=== PATIENT | male | born 1955 | race African-American/Black ===

== ENCOUNTER 2016-09-29 13:12 | Inpatient (IN) | payer MEDICARE, MEDICAID ==
[~2016-09-29] VITALS: Ht 170.2 cm; Wt 97.1 kg
--- NOTE | ~2016-09-29 | HEMODYNAMI ---
PATIENT:TRAVIS VILLALBA MEDICAL RECORD: [id number] : 55 [id number] ADMISSION DATE: 09/29/16 Generatedon:10/07/201613:06 Patient name: TRAVIS VILLALBA Patient #: [id number] SSN: [id number] : 1955 Date of study: 10/07/2016 Page: Of Hemodynamic Procedure Report Patient Data Patient Demographics Procedure consent was obtained First Name: TRAVIS Gender: Male Last Name: DEEJAY : 1955 Middle Initial: TRUDY Age: 61 year(s) Patient #: [id number] Race: Black SSN: [id number] Additional ID: [id number] Contact details [address]: [address] [place] [address] [address] State: [place] City: [place] Zip code: [address] Past Medical History History of disease Date Diagnosis Comments CAD PVD Hypertension Diabetes Allergies: No known allergies Admission Admission Data Admission Date: 09/29/2016 Admission Time: 16:41 Admit Source: Other Insurance Payor: Medicare, Room #: D.2110 Medicaid Height (in.): 67 BSA: 2.13 (m2) Height (cm.): 170.18 BMI: 35.4 (kg/m2) Weight (lbs.): 226 Weight (kg.): 102.51 Lab Results Lab Result Date: 10/06/2016 Lab Result Time: 8:50 Biochemistry Name Units Result Min Max BUN mg/dl 69 --(----)-* 7 18 Creatinine mg/dl 2.7 --(----)-* 0.6 1.3 CBC Name Units Result Min Max Hematocrit % 44.9 --(*---)-- 42 54 Hemoglobin g/dl 14.6 --(-*--)-- 13.5 17.5 Procedure Procedure Types Cath Procedure Peripheral vascular Intervention Stent Procedure Description Procedure Date Procedure Date: 10/07/2016 Procedure Start Time: 12:49 Procedure End Time: 13:04 Procedure Staff Name Function Dominick Dowling MD Performing Physician Grady Thompson RT Scrub Yanique Pace RN Nurse Red Martin RN Quality Assurance Pan Gaffney RT Monitor Gustavo Knight RT Monitor Procedure Data Cath Procedure Fluoroscopy Diagnostic fluoroscopy Total fluoroscopy Time: 2.3 time: 2.3 min min Diagnostic fluoroscopy Total fluoroscopy dose: 116 dose: 116 mGy mGy Contrast Material Contrast Material Type Amount (ml) Isovue 300 0 Entry Location Entry Primary Successful Side Size Upsize Upsize Entry Closure Vizcarra ccessful Closure Location (Fr) 1 (Fr) 2 (Fr) Remarks Device Remarks Femoral Left 5 Fr un Mechanical artery Compression Estimated blood loss: 5 ml Procedure Complications No complications Procedure Medications Medication Administration Route Dosage Oxygen NC 2 l/min Heparin Flush Bag added to field 2 bags (1000units/500ml NS) Lidocaine 2% added to field 20 Versed I.V. 1 mg Fentanyl I.V. 50 mcg Versed I.V. 1 mg Fentanyl I.V. 50 mcg Versed I.V. 1 mg Fentanyl I.V. 50 mcg Versed I.V. 1 mg Fentanyl I.V. 50 mcg Versed I.V. 0.5 mg Fentanyl I.V. 25 mcg Hemodynamics Rest BSA: 2.13 (m2) HGB: 14.6 (g/dl) O2 Consumption: Estimated: 271.66 (ml/min) O2 Co nsumption indexed: Estimated:127.54 (ml/min/m) Heart Rate: 97 (bpm) Snapshots Pre Cath Intra NCS Post Cath Vital Signs Time Heart Resp SPO2 NIBP (mmHg) Rhythm Pain Sedation Rate (ipm) (%) Status Level (bpm) 12:06:57 86 24 99 119/84(99) NSR 0 (11) 10(A) , No pain 12:11:05 86 22 98 119/85(101) NSR 0 (11) 10(A) , No pain 12:15:14 83 19 98 115/83(95) NSR 0 (11) 10(A) , No pain 12:19:22 82 14 98 119/79(94) NSR 0 (11) 10(A) , No pain 12:23:30 80 15 97 114/83(97) NSR 0 (11) 10(A) , No pain 12:27:38 80 14 98 110/76(91) NSR 0 (11) 10(A) , No pain 12:31:42 79 14 95 112/81(93) NSR 0 (11) 10(A) , No pain 12:35:48 79 13 98 111/76(93) NSR 0 (11) 10(A) , No pain 12:39:53 78 14 98 111/79(93) NSR 0 (11) 10(A) , No pain 12:44:01 78 13 95 108/75(87) NSR 0 (11) 10(A) , No pain 12:48:09 78 16 96 109/70(89) NSR 0 (11) 10(A) , No pain 12:52:44 85 15 96 139/117(129) NSR 0 (11) 9(A) , No pain 12:56:58 85 25 97 122/92(111) NSR 0 (11) 9(A) , No pain 13:01:05 84 16 96 134/112(126) NSR 0 (11) 9(A) , No pain Medications Time Medication Route Dose Verified Delivered Reason Notes Effec tiveness by by 12:07:28 Oxygen NC 2 Dominick Yanique Per l/min Josey Pace RN physician 12:07:35 Heparin Flush added 2 Dominick Dominick used for Bag to bags Josey Dowling MD procedure (1000units/500ml field NS) 12:07:41 Lidocaine 2% added 20ml Dominick Dominick used for to vial Josey Dowling MD procedure field 12:41:18 Versed I.V. 1 mg Dominick Yanique for Josey Pace RN sedation 12:41:25 Fentanyl I.V. 50 Dominick Yanique for mcg Josey Pace RN sedation 12:44:16 Versed I.V. 1 mg Dominick Yanique for Josey Pace RN sedation 12:44:23 Fentanyl I.V. 50 Dominick Yanique for mcg Josey Pace RN sedation 12:46:24 Versed I.V. 1 mg Dominick Yanique for Josey Pace RN sedation 12:46:28 Fentanyl I.V. 50 Dominick Yanique for mcg Josey Pace RN sedation 12:48:23 Versed I.V. 1 mg Dominick Yanique for Josey Pace RN sedation 12:48:26 Fentanyl I.V. 50 Dominick Yanique for mcg Josey Pace RN sedation 12:50:49 Versed I.V. 0.5 Dominick Yanique for mg Josey Pace RN sedation 12:50:57 Fentanyl I.V. 25 Dominick Yanique for mcg Josey Pace RN sedation Procedure Log Time Note 11:30:00 Red Martin RN sent for patient. Start room use. 11:40:51 ACC Patient presents with No angina; no symptoms CCS Anginal Class 2--Slight limitation of ordinary activity. 11:40:58 Diagnostic Cath status Elective 11:41:10 Time tracking: Regular hours 11:41:14 Plan of Care:Hemodynamics will remain stable., Cardiac rhythm will remain stable., Comfort level will be maintained., Respiratory function will remain adequate., Patient/ family verbilizes understanding of procedure., Procedure tolerated without complication., Recovers from procedure without complications.. 11:45:51 Admit Source: Other 11:45:53 Insurance Payor : Medicare, Medicaid 11:46:48 Lab Result : Hemoglobin 14.6 g/dl 11:46:48 Lab Result : Hematocrit 44.9 % 11:46:48 Lab Result : BUN 69 mg/dl 11:46:48 Lab Result : Creatinine 2.7 mg/dl 11:47:04 Informed consent obtained and on chart 11:55:35 Patient received from Med II to CCL 1 Alert and oriented. Tansferred to table in Supine position. 11:55:36 Warm blankets applied, and bailey hugger turned on for patient comfort. 11:55:37 Correct patient and procedure confirmed by team. 11:55:56 ECG and BP/O2 sat monitors applied to patient. 11:56:09 H&P Date Dictated: 09/29/2016 Within 30 days and on chart.. 11:56:10 Pre-procedure instructions explained to patient. 11:56:11 Pre-op teaching completed and patient verbalized understanding. 11:56:13 Family unavailable. 11:56:15 Patient NPO since Midnight. 11:57:56 Is the patient allergic to Iodine/contrast media? No. 11:58:00 Is patient on blood thinner?Yes 11:58:03 ACC The patient was administered the following blood thiners within the last 24 hours: ACCPlavix 12:00:37 Patient diabetic? Yes. 12:04:03 If diabetic: On Metformin? No 12:04:07 Previous problem with sedation/anesthesia? No ? 12:04:10 Snore? Yes 12:04:11 Sleep apnea? Yes 12:04:12 Deviated septum? No 12:04:13 Opens mouth fully? Yes 12:04:14 Sticks out tongue? Yes 12:04:22 Airway obstruction? Yes COPD 12:04:28 Dentures? No ? 12:04:32 Pre procedure: left dorsailis pedis pulse 1+ Palpable, but thready & weak; easily obliterated 12:05:00 Patient pain scale 0/10 ?. 12:05:12 IV patent on arrival in port with 0.9% NaCl at [facility]. 12:05:16 Lab results completed and on chart. 12:05:27 Left groin area was prepped with chlora-prep and draped in sterile fashion 12:05:28 Alarms reviewed by R. N. 12:05:29 Sharps counted by scrub and verified by R.N. 12:05:34 Use device set Femoral PCI 12:05:36 Tegaderm 4 x 4 opened to sterile field. 12:05:40 Acist Manifold opened to sterile field. 12:05:41 Acist Syringe opened to sterile field. 12:05:42 Acist Hand Control opened to sterile field. 12:05:42 Bag Decanter opened to sterile field. 12:05:48 Cardinal Cath Pack opened to sterile field. 12:05:48 Terumo 6Fr [place] Sheath opened to sterile field. 12:05:56 Vital chart was started 12:06:59 Patient Height : 170.18 cm 12:07:01 Patient Weight : 102.51 kg 12:07:28 Oxygen 2 l/min NC was given by Yanique Pace RN; Per physician; 12:07:35 Heparin Flush Bag (1000units/500ml NS) 2 bags added to field was given by Dominick Dowling MD; used for procedure; 12:07:41 Lidocaine 2% 20ml vial added to field was given by Dominick Dowling MD; used for procedure; 12:08:25 Baseline sample Acquired. 12:09:02 Rhythm: sinus rhythm 12:09:05 Full Disclosure recording started 12::06 --------ALL STOP TIME OUT------ 12::07 Final Timeout: patient, procedure, and site verified with staff and physician. All members of the team are in agreement. 12:41:09 Left groin site verified by team. 12:41:12 Physical assessment completed. ASA score P 2 - A patient with mild systemic disease as per Dominick Dowling MD. 12:41:14 Sedation plan: IV Moderate Sedation Versed, Fentanyl 12:41:18 Versed 1 mg I.V. was given by Yanique Pace RN; for sedation; 12:41:25 Fentanyl 50 mcg I.V. was given by Yanique Pace RN; for sedation; 12:44:16 Versed 1 mg I.V. was given by Yanique Pace RN; for sedation; 12:44:23 Fentanyl 50 mcg I.V. was given by Yanique Pace RN; for sedation; 12:46:24 Versed 1 mg I.V. was given by Yanique Pace RN; for sedation; 12:46:28 Fentanyl 50 mcg I.V. was given by Yaniquefrank Pace RN; for sedation; 12:48:23 Versed 1 mg I.V. was given by Yanique Pace RN; for sedation; 12:48:26 Fentanyl 50 mcg I.V. was given by Yanique Pace RN; for sedation; 12:49:31 Procedure started. 12:49:37 Local anesthetic to left femerol artery with Lidocaine 2% by Dominick Dowling MD.INITIAL ACCESS ONLY 12:50:17 Zero performed for pressure channel P1 12:50:24 Zero performed for pressure channel P1 12:50:35 Zero performed for pressure channel P1 12:50:44 Zero performed for pressure channel P1 12:50:49 Versed 0.5 mg I.V. was given by Yanique Pace RN; for sedation; 12:50:57 Fentanyl 25 mcg I.V. was given by Yanique Pace RN; for sedation; 12:54:23 Terumo 5Fr [place] Sheath opened to sterile field. 12:55:55 A 5 Fr sheath was inserted into the Left Femoral arteryun 12:56:27 Due to respiratory status we were unabel to gain access. 12:57:54 St Aric Femstop Arch Gold opened to sterile field. 12:59:57 Sheath removed intact; hemostasis achieved with Mechanical Compression to the Left Femoral artery. 13:00:00 Procedure ended.(Physican Out) 13:00:18 Fluoroscopy time 02.30 minutes. 13:00:24 Flurop Dose total: 116 13:00:24 Fluoroscopy dose: 116 mGy 13:00:31 Contrast amount:Isovue 300 0ml. 13:00:33 Sharps counted by scrub and verified by R.N. 13:00:37 Insertion/operative site no bleeding no hematoma. 13:00:48 Post-op/insertion site Left Femoral artery dressed using a 4 x 4 and Tegaderm. 13:00:57 Post left femerol artery:stable, soft, clean and dry 13:01:42 Femstop placed over the left femerol artery at 175 mmHg. Hemostasis achieved. 13:01:43 Post Procedure Pulses reassessed and unchanged 13:01:58 Post-procedure physical assessment completed. ASA score P 2 - A patient with mild systemic disease as per Dominick Dowling MD. 13:02:01 Post procedure rhythm: unchanged. 13:02:06 Estimated blood loss: 5 ml 13:02:07 Post procedure instruction explained to patient.Patient verbalizes understanding. 13:02:08 Patient needs reinforcement of post procedure teaching. 13:03:29 Procedure type changed to Cath procedure, Peripheral vascular Intervention, Stent 13:04:00 Procedure and supply charges have been captured, reviewed, submitted and are correct. 13:04:06 Procedure Complication : No complications 13:04:13 Vital chart was stopped 13:04:14 See physician's report for complete and final results. 13:04:16 Report given to PCU. 13:04:19 Patient transfered to PCU with Stretcher. 13:04:31 Procedure ended. 13:04:31 Full Disclosure recording stopped 13:04:43 ACC-PCI Only Patient was given prescriptions, or instructed by Dominick Dowling MD to start/continue the following medications upon discharge: Plavix 13:04:44 End room use (Document Last) Device Usage Item Manufacture Quantity Catalog Hospital Part Current Minimal Lot # / Name Number Charge Number Stock Stock Ser ial# Code Tegaderm 1 [id number] 5 4 x 4 Acist Acist 1 92943 353676 [id number] [id number] 5 Manifold Medical Systems Inc Acist Acist 1 16755 810282 050396 [id number] 20 Syringe Medical Systems Inc Acist Acist 1 76876 707666 577942 549546 5 Hand Medical Control Systems Inc Bag Microtek 1 2002S 072211 53350 007819 5 Decanter Medical Inc. Cardinal Cardinal 1 [id number] 916606 78940 070808 5 Cath Health Pack Terumo Terumo 1 [id number] [id number] 701028 661253 40 6Fr [place] Sheath Terumo Terumo 1 [id number] 939497 456967 529685 [address] [place] [address] A[address] St Aric 1 [id number] 864808 144855 169226 5 Femstop Arch Gold Signature [employer]it [place] [facility] Stage Time Signature Unsigned Intra-Procedure 10/07/2016 Gustavo Knight 1:05:58 PM RT(R) Signatures Monitor : Pan Gaffney RT Signature : Date : Time : Monitor : Gustavo Knight RT Signature : Date : Time : [facility] [address] [facility] [place] [address]
[~2016-09-29 13:12] MED LIST: ADVAIR 250/501 DISK INH; ADVAIR HFA [SP]12 GM INH; ALBUTEROL2.5 MG/3 M INH; AUGMENTIN 875-11 TAB PO; BAYER CHEWABLE81 MG PO; BETAPACE 120 M120 MG PO; CARDIZEM CD120 MG PO; CARDURA4 MG; CARDURA4 MG PO; CATAPRES-T1 PATCH.WK TD; CATAPRES-T1 PATCH.WK TRANSDERM; CORDARONE200 MG PO; COREG12.5 MG PO; COREG6.25 MG PO; COUMADIN2.5 MG PO; COUMADIN5 MG PO; COUMADIN7.5 MG PO; DOXYCYCLINE HY100 M2 PO; ELAVIL75 MG PO; FLOMAX0.4 MG PO; FUROSEMIDE20 MG PO; GLUCOPHAGE500 MG PO; GLUCOTROL 5 MG T5 MG PO; GLUCOTROL XL 5 M5 MG PO; HYDRALAZINE HCL25 MG PO; HYDROCODONE-APA1 TAB PO; IMDUR60 MG PO; ISORDIL40 MG PO; ISOSORBIDE MONO60 M1 PO; JANUVIA50 MG PO; K-DUR20 MEQ PO; LANOXIN125 MCG PO; LANTUS SOL100 UNIT/1 SC; LASIX20 MG PO; LASIX40 MG PO; LIPITOR10 MG PO; LISINOPRIL10 MG PO; LOVENOX INJ100 MG/ML SC; LOVENOX INJ100 MG/ML SQ; MEDROL DOSE PACK4 MG PO; MEDROL2 MG PO; METOPROLOL TAR100 M1 PO; MOBIC7.5 MG PO; NEURONTIN 300300 MG PO; NITRO-DUR0.2 MG TRANSDERM; NITROQUICK0.4 MG SL; NITROSTAT0.4 MG SL; NORCO 10/325 TA1 TA1 PO; NORVASC10 MG PO; NORVASC5 MG PO; PLAVIX75 MG PO; PROVENTIL/2.5 MG/3 M INH; SORINE80 MG; SORINE80 MG PO; STERAPRED 5MG 125 MG PO; SYMBICORT 16010.2 GM INH; TOPROL XL100 MG PO; ZAROXOLYN2.5 MG PO; ZOCOR20 MG PO; ZPAK PO
[2016-09-29 13:51] LABS: BASOPHILS 0.1 % (0.0-2.0); HEMATOCRIT 39.5 % (42.0-54.0); HEMOGLOBIN 12.5 g/dL (13.5-17.5); IMMATURE GRANULOCYTES 0.1 % (0-5); LYMPHOCYTES 9.2 % (15-50); MCH 26.1 pg (26.0-34.0); MCHC 31.6 g/dL (31.0-37.0); MCV 82.5 fL (80.0-100.0); MEAN PLATELET VOLUME 10.8 fL (7.4-10.4); MONOCYTES 11.5 % (2-11); NEUTROPHILS 77.1 % (40-80); PLATELET COUNT 206 10x3/uL (130-400); RBC 4.79 10x6/uL (4.20-6.10); RDW 18.1 % (11.5-14.5); WBC 7.1 10x3/uL (4.8-10.8)
[2016-09-29 14:05] LABS: ALBUMIN 3.2 g/dL (3.4-5.0); ANION GAP 11.3 mmol/L (8-16); BILIRUBIN - TOTAL 0.33 mg/dL (0.2-1.3); CALCIUM 8.6 mg/dL (8.5-10.1); CARBON DIOXIDE 27.7 mmol/L (21.0-32.0); PROTEIN - SERUM 6.7 g/dL (6.4-8.2)
[2016-09-29 14:14] LABS: TROPONIN-I 0.052 ng/mL (0.000-0.060)
[2016-09-29 19:00] VITALS: BP 132/84
[2016-09-29 19:02] VITALS: BP 145/95; BMI 39.2
--- NOTE | 2016-09-29 21:18 | NUR ---
SITTING ON SIDE OF BED. nO COMPALINTS VOICED. lEFT CHEST PORT SL. FLUSHED PER ORDERS. CL IN REACH.
[2016-09-30] VITALS (23 sets, daily range): BP systolic 102–196; BP diastolic 59–114; Ht 170.2 cm; Wt 97.1 kg
--- NOTE | 2016-09-30 02:22 | NUR ---
EYES CLOSED RESP EVEN. SEMI FOWLERS POSITION. 02 @ 3L PER NC ON. NO DISTRESS NOTED. CL IN REACH.
--- NOTE | 2016-09-30 06:30 | NUR ---
PATIENT IN BED WATCHING TV. AAOX4. RR EVEN AND UNLABORED. O2 @ 2L VIA NC. TELEMETRY ON. STATES PAIN IS A 10. NORCO GIVEN PER ORDER. WILL REASSESS.
--- NOTE | 2016-09-30 07:15 | NUR ---
PATIENT RECEIVED ALERT IN BED. C/O PAIN TO ABDOMEN 10/10 AND NAUSEA. LABS DRAW FROM PORT. SIDE RAILS UP X2. BED IN LOW POSITION. CALL LIGHT IN REACH.
--- NOTE | 2016-09-30 07:43 | NUR ---
CRITICAL GLUCOSE OF 751 RECEIVED.
--- NOTE | 2016-09-30 07:54 | NUR ---
28 UNITS HUMALOG GIVEN PER SLIDING SCALE. WILL NOTIFY PHYSICIAN
--- NOTE | 2016-09-30 08:20 | NUR ---
SCHEDULED MEDICATION ADMINISTERED. WELL TOLERATED. SIDE RAILS UP X2. BED IN LOW POSITION. CALL LIGHT IN REACH.
[2016-09-30 08:21] LABS: INR 1.69 (0.85-1.17); PROTIME 19.9 SECONDS (11.6-15.0)
[2016-09-30 08:59] LABS: ALBUMIN 3.5 g/dL (3.4-5.0); BILIRUBIN - TOTAL 0.4 mg/dL (0.2-1.3); CALCIUM 8.5 mg/dL (8.5-10.1); CARBON DIOXIDE 23.8 mmol/L (21.0-32.0); CREATININE - SERUM 2.8 mg/dL (0.6-1.3); PROTEIN - SERUM 7.5 g/dL (6.4-8.2)
[2016-09-30 09:00] LABS: ANION GAP 19.1 mmol/L (8-16); POTASSIUM - SERUM 5.9 mmol/L (3.5-5.1)
--- NOTE | 2016-09-30 09:20 | NUR ---
CONNOR VERGARA SPOKE WITH DR VILLANUEVA REGARDING PATIENT CONDITION. NEW ORDERS RECEIVED.
[2016-09-30 10:06] LABS: BASOPHILS 0.2 % (0.0-2.0); EOSINOPHILS 0 % (0-7); HEMATOCRIT 44.8 % (42.0-54.0); HEMOGLOBIN 13.7 g/dL (13.5-17.5); IMMATURE GRANULOCYTES 0.5 % (0-5); LYMPHOCYTES 11.3 % (15-50); MCH 25.5 pg (26.0-34.0); MCHC 30.6 g/dL (31.0-37.0); MCV 83.3 fL (80.0-100.0); MONOCYTES 3.9 % (2-11); NEUTROPHILS 84.1 % (40-80); RBC 5.38 10x6/uL (4.20-6.10); RDW 18.3 % (11.5-14.5); WBC 6.6 10x3/uL (4.8-10.8)
[2016-09-30 10:07] LABS: PLATELET COUNT 275 10x3/uL (130-400)
[2016-09-30 10:46] LABS: UDS - AMPHET NEGATIVE QUAL (NEGATIVE); UDS - BARB NEGATIVE QUAL (NEGATIVE); UDS - BENZO NEGATIVE QUAL (NEGATIVE); UDS - COCAINE NEGATIVE QUAL (NEGATIVE); UDS - METH NEGATIVE QUAL (NEGATIVE); UDS - OPIATE POSITIVE QUAL (NEGATIVE); UDS - PCP NEGATIVE QUAL (NEGATIVE); UDS - THC NEGATIVE QUAL (NEGATIVE)
--- NOTE | 2016-09-30 10:50 | NUR ---
GLUCOSE 658. 30 UNITS REGULAR INSULIN GIVEN PER ORDERS.
--- NOTE | 2016-09-30 11:05 | NUR ---
PT ARRIVED BY WHEELCHAIR TO ROOM 2301. PT PLACED ON ICU MONITORS. ORIENTED TO ROOM. CALL LIGHT WITHIN REACH.
--- NOTE | 2016-09-30 11:05 | NUR ---
PATIENT TRANSFERRED TO ICU VIA WHEELCHAIR
--- NOTE | 2016-09-30 11:39 | NUR ---
Is the patient Alert and Oriented? Yes 0 * How many steps to enter\exit or inside your home? 5 0 * PCP DR. VILLANUEVA 0 * Pharmacy [facility] 0 * Preadmission Environment Home with Family 0 * ADLs Independent 0 * Equipment CPAP Nebulizer Oxygen Rolling Walker 0 * Other Equipment PATIENT HAS O2 AND EQUIPMENT FROM [facility] 0 * List name and contact numbers for known caregivers / representatives who currently or will assist patient after discharge: NIRANJAN MELGAR [phone] 0 * Additional services required to return to the preadmission environment? Yes 0 * Can the patient safely return to the preadmission environment? Yes 0 * Has this patient been hospitalized within the prior 30 days at any hospital? Yes 0 PATIENT STATES HE LIVES AT HOME WITH HIS FIANCERAMÓN. HE STATES SHE ASSIST HIM SOME BUT SHE HAS SEIZURES AND HAS MEMORY PROBLEMS. PATIENT STATES HE WAS INDEPENDENT WITH ALL ADL'S PRIOR TO COMING TO THE HOSPITAL. HIS PCP IS DR. VILLANUEVA. HE GETS HIS MEDS FROM [facility]. HE STATES HE HAS NOT HAD HOME HEALTH. HE HAS O2, NEBULIZER, AND CPAP FROM [facility]. PATIENT STATES HE WILL CALL ONE OF HIS CHILDREN TO DRIVE HIM HOME AT DISCHARGE. THERE ARE 5 STEPS TO ENTER HIS HOME. PATIENT DOES REQUEST AT DISCHARGE POSSIBLY ASSISTANCE FROM [facility] ON AGING FOR PHYSICIAN'S ASSISTANT TO ASSIT HIM IF POSSIBLE WITH BATHING AND SOME HOUSEKEEPING. HE STATES HE HAD THAT ASSISTANCE SEVERAL YEARS AGO. CM TO FOLLOW.
--- NOTE | 2016-09-30 13:12 | HP ---
PATIENT: TRAVIS VILLALBA MEDICAL RECORD: [id number] ACCOUNT: [id number] LOCATION:[facility] [id number] : 55 ADMISSION DATE: 09/29/16 HISTORY AND PHYSICAL EXAMINATION DATE OF ADMISSION: 09/29/2016 CHIEF COMPLAINT: Productive cough, congestion that has gotten worse over the last couple of weeks, has tightness in his chest, but he has no chest pain. HISTORY OF PRESENT ILLNESS: This is a 61-year-old -[place] Islander who presented to the ER complaining of worsening respiratory status. He has been in the hospital a couple times recently more for breathing status and for his heart, which he has been most frequently admitted for. In the Emergency Room, he was afebrile, pulse was 83, respirations were 20. He had pain diffusely in the lungs and rates it as 9 in a 1-10 scale. He had diffuse wheezing. EMS was called and they gave him updraft Xopenex, but that really did not seem to help much at all. He is admitted for COPD exacerbation. PAST MEDICAL AND SURGICAL HISTORY: He was just in the hospital a couple of weeks ago. He has had multiple admissions for chest pain or congestive heart failure and sometimes COPD. PAST MEDICAL AND SURGICAL HISTORY: He has history of coronary artery disease with bypass graft as well as aortic valve replacement by Dr. Mac. He has had multiple stents by [facility]. He has uncontrolled type 2 diabetes on insulin, chronic kidney disease with a baseline around 2.0. He has chronic shoulder and hip pain. He has had bilateral shoulder replacements by Dr. Huggins. ALLERGIES: No known drug allergies. HOME MEDICATIONS: He has been on Augmentin twice a day after last discharge; he is on Proventil updrafts every 6 hours as needed, Flomax 0.4 mg once a day, Plavix 75 mg once a day, warfarin 5 mg once a day, amiodarone 200 mg twice a day, amlodipine 10 mg once a day, carvedilol 12.5, he has been on 25 mg mg twice a day, doxazosin 4 mg twice a day, isosorbide mononitrate 60 mg twice a day, nitroglycerin 0.4 mg tablets sublingual every 5 minutes times 3 p.r.n. chest pain, nitroglycerin patch placed daily, clonidine patch once a week 0.3 mg per 24 hours, amitriptyline 75 mg at bedtime, aspirin 81 mg once a day, gabapentin 300 mg twice a day, Papillion 10/325 q.4 hours p.r.n. pain, Lasix 20 mg twice a day, Symbicort 2 puffs twice a day, Lantus insulin should be on 20 units daily, he finished Medrol Dosepak and he is on Januvia 50 mg once a day. Home medicines are listed on his DEC. SOCIAL HISTORY: Lives with significant other. He is on disability for multiple medical problems. HABITS: He drinks occasionally. He has used cocaine in the past, more often smoking marijuana. He states he stopped smoking cigarettes just before . FAMILY HISTORY: Mother with history of heart disease. He does not know his father's family history. HISTORY AND PHYSICAL [id number] TRAVIS VILLALBA REVIEW OF SYSTEMS: GENERAL: No major weight changes. HEENT: No particular sinus or allergy problems. RESPIRATORY: Has COPD, has home oxygen and on inhalers. CARDIAC: See above history, followed by Dr. Dowling. GASTROINTESTINAL: No significant problems there. GENITOURINARY: No significant problems there. MUSCULOSKELETAL: He has chronic pain especially in his shoulders, hips and knees. NEUROLOGIC: No seizures or headaches. PSYCHIATRIC: No depression or melancholia. PHYSICAL EXAMINATION: VITAL SIGNS: He is afebrile, pulse 90, respirations 22, blood pressure 145/95, O2 sat 96%. GENERAL: He appears in mild respiratory distress, struggling a little. HEENT: Grossly within normal limits. NECK: Supple. No JVD or bruit. HEART: Regular rate and rhythm. LUNGS: Mild diffuse wheezes. ABDOMEN: Soft. EXTREMITIES: No edema. Has chronic pain in shoulders. LABORATORY DATA: Arterial blood gas, pH 7.4, pCO2 of 38 and pO2 of 82. CBC with a white count of 16,100, white count is 7100, hemoglobin is 16.1, hematocrit 47 and platelet count 206,000 with 77% neutrophils. Sodium 133, potassium 5.0, chloride 99, CO2 of 27.7, BUN 37, creatinine 2.0, glucose 301 and calcium 8.6. LFTs are all okay. Troponin is okay at 0.052, proBNP 2989, which is bad for him. DIAGNOSTIC DATA: Chest x-ray was done and compared to previous chest x-ray on 09/26/2016, some increased pulmonary vascular congestion with findings consistent with slightly increased pulmonary edema in comparison to previous study. ASSESSMENT: 1. Chronic obstructive pulmonary disease exacerbation. 2. Mild congestive heart failure. 3. Uncontrolled diabetes. PLAN: Respiratory meds and diurese a little. Consult pulmonary. Other tests or procedures as warranted. TRANSINT:[id number] Voice Confirmation ID: [id number] DOCUMENT ID: [id number] HISTORY AND PHYSICAL [id number] TRAVIS VILLALBA WILLIAM MD at 1312 CC: [id number] DICTATION DATE: 09/29/162227 CONTINUOUS MINING OPERATOR: 09/29/16 2320 ADM IN [facility] [address] [place] [address]
--- NOTE | 2016-09-30 14:01 | NUR ---
PT'S BS IS CONTINUING TO DROP. DID EAT SOME OF HIS LUNCH TRAY. WILL CONTINUE TO CLOSELY MONITOR AND TREAT PER ORDERS ONCE IT STOPS TRENDING DOWN.
--- NOTE | 2016-09-30 16:30 | NUR ---
PT SITTING UP AND SET UP WITH SUPPER TRAY. NO OTHER NEEDS AT THIS TIME. VSS AT THIS TIME.
--- NOTE | 2016-09-30 19:35 | NUR ---
REC'D TO CARE, INSPECTOR COATED FABR[employer] PER FLOWSHEET. PT AWAKENS EASILY, VSS. PT DENIES SOB OR PAIN. IV DOBUTAMINE INFUSING TO L INFUSAPORT, DSG C/D/I. PT DENIES NEEDS. C/L IN REACH. ALARMS ON.
--- NOTE | 2016-09-30 20:51 | NUR ---
ADMIN PO MEDS PER MD ORDERS. PT REFUSED ELAVIL. SBP 102, B/P MEDS HELD AT THIS TIME. WILL CONT CLOSE MONITORING.
--- NOTE | 2016-09-30 21:07 | NUR ---
SBP 134 - ADMIN REST OF HOME MEDS. PT DENIES NEEDS. AWARE THAT WE NEED URINE SAMPLE - SPECIMEN CUP AT BS.
--- NOTE | 2016-09-30 22:45 | NUR ---
REASSESSMENT PER FLOWSHEET, NO ACUTE CHANGES. PT AWAKENS EASILY, DENIES NEEDS. VSS.
[2016-10-01] VITALS (30 sets, daily range): BP systolic 119–162; BP diastolic 77–109
--- NOTE | 2016-10-01 01:00 | NUR ---
RESTING WITH EYES CLOSED, VSS. C/L IN REACH.
--- NOTE | 2016-10-01 02:50 | NUR ---
REASSESSMENT PER FLOWSHEET, NO ACUTE CHANGES. AWAKENS EASILY, DENIES NEEDS. VSS.
--- NOTE | 2016-10-01 03:20 | NUR ---
PT VOIDED 750ML CLEAN - CATCH - SPECIMEN TO LAB. AM LAB DRAWN.
[2016-10-01 03:42] LABS: APPEARANCE CLEAR (CLEAR); COLOR YELLOW (YELLOW); LEUKOCYTE ESTERASE NEGATIVE (NEGATIVE); NITRITE NEGATIVE (NEGATIVE); PROTEIN NEGATIVE (NEGATIVE)
[2016-10-01 03:43] LABS: BILIRUBIN NEGATIVE (NEGATIVE); GLUCOSE 500 mg/dL (NEGATIVE); KETONE NEGATIVE (NEGATIVE); UROBILINOGEN NORMAL (NORMAL)
[2016-10-01 03:44] LABS: CREATININE - URINE 100.1 mg/dL (30-125); PROTEIN - URINE 36.3 mg/dL (0.0-11.9)
[2016-10-01 03:46] LABS: BASOPHILS 0.1 % (0.0-2.0); EOSINOPHILS 0 % (0-7); HEMATOCRIT 41.9 % (42.0-54.0); HEMOGLOBIN 13.5 g/dL (13.5-17.5); IMMATURE GRANULOCYTES 0.3 % (0-5); LYMPHOCYTES 7.4 % (15-50); MCH 26.3 pg (26.0-34.0); MCHC 32.2 g/dL (31.0-37.0); MCV 81.5 fL (80.0-100.0); MEAN PLATELET VOLUME 10.9 fL (7.4-10.4); MONOCYTES 6.2 % (2-11); PLATELET COUNT 256 10x3/uL (130-400); RBC 5.14 10x6/uL (4.20-6.10); RDW 17.7 % (11.5-14.5); WBC 11.9 10x3/uL (4.8-10.8)
[2016-10-01 03:53] LABS: CALCIUM 9.2 mg/dL (8.5-10.1); CREATININE - SERUM 2.5 mg/dL (0.6-1.3); MAGNESIUM - SERUM 2.3 mg/dL (1.8-2.4); PHOSPHOROUS 5.1 mg/dL (2.5-4.9)
[2016-10-01 04:05] LABS: ANION GAP 13.2 mmol/L (8-16); CARBON DIOXIDE 29.8 mmol/L (21.0-32.0)
--- NOTE | 2016-10-01 04:30 | NUR ---
AM LABS REVIEWED. GLU 182 - COVERAGE PER SSI. PT RESTING QUIETLY - DENIES NEEDS.
--- NOTE | 2016-10-01 07:00 | NUR ---
REC'D REPORT AND RESUMED CARE, AAO, VSS, O2 VIA NC AT 2L, SAT 99%, INFUSA PORT LEFT SUBCLAVIAN WITH DOBUTAMINE AT 5 MCG/KG/MIN, URINAL IN USE, SELF REPOSITIONS, ASSESSMENT COMPLETE PER FLOWSHEET, DENIES PAIN, CALL LIGHT IN REACH, VOICES NO NEEDS AT THIS TIME
--- NOTE | 2016-10-01 08:00 | NUR ---
FSBS 238, 8 UNITS HUMALOG PER INTERMEDIATE S/S
--- NOTE | 2016-10-01 09:00 | NUR ---
AM MEDS GIVEN WITHOUT DIFFICULTY
--- NOTE | 2016-10-01 09:25 | CN ---
PATIENT NAME:TRAVIS VILLALBA MEDICAL RECORD: [id number] : 55 LOCATION:[id number] ADMIT DATE: 09/29/16 ACCOUNT: [id number] CONSULTING PHYSICIAN: RAISA QUEEN MD REFERRING PHYSICIAN: AMOL VILLANUEVA MD DATE OF CONSULTATION: 09/30/2016 Pulmonary Consultation CONSULT REQUESTING PHYSICIAN: Dr. Amol Villanueva. REASON FOR CONSULTATION: Acute exacerbation of COPD, pulmonary edema, and possible underlying pneumonia. HISTORY OF PRESENT ILLNESS: Mr. Villalba is a 61-year-old gentleman, very well known to us. According to the patient, he has some chest pain, also he had worsening shortness of breath. He was coughing yellow color sputum. According to the patient, he hears himself wheezing. The cough is productive with whitish color sputum production. He is feeling better since yesterday. The patient was having high blood glucose levels secondary to steroids. He denies any fever and chill. REVIEW OF SYSTEMS: Mainly in the history of present illness. PAST MEDICAL HISTORY: 1. Congestive heart failure with systolic dysfunction with EF nearly 40%. 2. Diabetes mellitus type 2. 3. Hypertension. 4. Chronic obstructive pulmonary disease. 5. Coronary artery disease. 6. Peripheral vascular disease. 7. Aortic valve disease status post aortic valve replacement. 8. Chronic kidney disease. 9. History of asthma. PAST SURGICAL HISTORY: 1. Aortic valve replacement. 2. Herniorrhaphy. 3. Shoulder surgery. ALLERGIES: There are no known drug allergies. PRESENT MEDICATIONS: On [employer] was reviewed. PERSONAL AND SOCIAL HISTORY: The patient claims he quit smoking weed 4 months ago and he quit smoking 5 days ago. FAMILY HISTORY: Noncontributory. PHYSICAL EXAMINATION: GENERAL: Now, the patient is lying comfortably. He is wearing nasal cannula oxygen. He is not in acute distress. VITAL SIGNS: The blood pressure is 134/93, pulse is 94, respiration is 16, temperature is 97.5, SpO2 is 94% on 3 liters nasal cannula. HEENT: Conjunctivae are pink, sclerae nonicteric. CONSULT REPORT [id number] TRAVIS VILLALBA NECK: Supple, no JVD. CHEST: Excursion is minimal on both sides. There is wheezing on forceful expiration. HEART: Rhythm regular, normal sound, no murmur. ABDOMEN: Soft, bowel sounds present. No hepatosplenomegaly. RECTAL: Deferred. EXTREMITIES: No cyanosis, no clubbing, no pedal edema. SKIN: Warm, normal turgor. CENTRAL NERVOUS SYSTEM: The patient is awake and alert. There is no obvious cranial nerve abnormality. The gait was not tested. IMAGING: Chest radiograph, there is increased interstitial marking consistent with increased pulmonary edema. OTHER LABORATORY DATA: CBC: The WBC is 6.6, hemoglobin 13.7, the hematocrit is 44.8, and the platelet count 275. Chemistry: Sodium is 133, potassium was 5. BUN is 37, creatinine is 2, glucose is 301 and this morning, his blood glucose level was 751. IMPRESSION: 1. Acute exacerbation of chronic obstructive pulmonary disease. 2. Possible tracheobronchitis. 3. Pulmonary edema. 4. Congestive heart failure, systolic dysfunction with ejection fraction 40%. 5. Diabetes mellitus type 2, poor controlled with hyperglycemia, most likely secondary to IV steroid. 6. Coronary artery disease. 7. Tobacco dependence syndrome. 8. Acute bronchitis. 9. Chronic kidney disease. RECOMMENDATION: 1. We decreased the dose of methylprednisolone. Continue albuterol/ipratropium nebulizer, Brovana and budesonide nebulizer. Continue doxycycline. 2. Aggressive glycemic control and sliding scale. Followup labs and chest radiograph in the morning. The patient is on dobutamine drip, seen by Dr. Esposito. Discuss with Dr. Villanueva. Dr. Villanueva, once again, thank you for involving me in the care of Mr. Villalba. TRANSINT:[id number] Voice Confirmation ID: [id number] DOCUMENT ID: [id number] RAISA QUEEN MD at 0925 CC: AMOL VILLANUEVA MD [id number] DICTATION DATE: 09/30/16 1217 PROPERTY MANAGEMENT INTERN: 09/30/16 1242 ADM IN [place] [id number] [place] [address]
--- NOTE | 2016-10-01 11:00 | NUR ---
NO ACUTE CHANGE FROM PREVIOUS ASSESSMENT, VSS, DENIES PAIN, CALL LIGHT IN REACH, INDEPENDENT WITH REPOSITIONING, NO NEEDS AT THIS TIME
--- NOTE | 2016-10-01 11:20 | NUR ---
DR. CARLSON AT BEDSIDE FOR EVAL
--- NOTE | 2016-10-01 12:37 | NUR ---
FSBS 350, 12 UNITS HUMALOG GIVEN PER LEFT DELTOID, PER S/S
--- NOTE | 2016-10-01 14:15 | NUR ---
SET UP FOR BED BATH GIVEN, INDEPENDENT, LINEN CHANGED, NO OTHER NEEDS AT THIS TIME
--- NOTE | 2016-10-01 15:00 | NUR ---
FAMILY AT BEDSIDE, STATUS UPDATED, VOICES NO NEEDS AT THIS TIME, ASSESSMENT COMPLETE, NO ACUTE CHANGE FROM PREVIOUS, VSS, CALL LIGHT IN REACH, SELF REPOSITIONS
--- NOTE | 2016-10-01 17:00 | NUR ---
DINNER TRAY TO BEDSIDE, INDEPENDENT WITH SET UP AND EATING, FSBS 232, 8 UNITS HUMALOG TO RIGHT ARM PER S/S
--- NOTE | 2016-10-01 18:00 | NUR ---
C/O OF QUISPE, HYDROCODONE 10/325 GIVEN FOR PAIN 06/12, NO VISITORS AT THIS TIME
--- NOTE | 2016-10-01 23:15 | NUR ---
1914- REPORT RECVD. CARE ASSUMED. INITIAL ASSMNT COMPLETED. SEE FLOWSHEET FOR ALL FINDINGS. AWAKE AND AOX4. RESP UNLABORED. EXP WHEEZES THRU OUT UPPER LOBES. SPO2 97% ON O2 AT 2LPM. SR ON THE MONITOR. PULSES PALP. WEAK. GENERALIZED EDEMA NOTED. ABD SOFT, BSA X4. VOIDS TO URINAL. UP TO BSC WITH MINIMAL ASSIST. HOB UP. C/L IN REACH. CONT CURRENT POC. 2129- HS MEDS GIVEN. S/S INSULIN GIVEN. PRN NORCO GIVEN PER REQUEST. EFFECTIVE WITH PAIN CONTROL. 2314- REASSESSMENT COMPLETED. SEE FLOWSHEET FOR ALL FINDINGS. RESTING WITH NO DISTRESS. RESP UNLABORED. EXP WHEEZES THRU OUT UPPER LOBES. SPO2 97% ON O2 AT 2LPM. SR ON THE MONITOR. PULSES PALP. WEAK. GENERALIZED EDEMA NOTED. ABD SOFT, BSA X4. VOIDS TO URINAL. UP TO BSC WITH MINIMAL ASSIST. HOB UP. C/L IN REACH. CONT CURRENT POC.
[2016-10-02] VITALS (24 sets, daily range): BP systolic 104–157; BP diastolic 66–114
--- NOTE | 2016-10-02 01:05 | NUR ---
RESTING IN BED WITH NO DISTRESS. VSS. SR ON THE MONITOR. HOB UP. C/L IN REACH. CONT CURRENT POC.
--- NOTE | 2016-10-02 03:15 | NUR ---
REASSESSMENT COMPLETED. SEE FLOWSHEET FOR ALL FINDINGS. RESTING WITH NO DISTRESS. RESP UNLABORED. EXP WHEEZES THRU OUT UPPER LOBES. SPO2 97% ON O2 AT 2LPM. SR ON THE MONITOR. PULSES PALP. WEAK. GENERALIZED EDEMA NOTED. ABD SOFT, BSA X4. VOIDS TO URINAL. UP TO BSC WITH MINIMAL ASSIST. PRN PAIN MED GIVEN FOR INCREASED PAIN LEVEL. HOB UP. C/L IN REACH. CONT CURRENT POC.
[2016-10-02 04:39] LABS: BASOPHILS 0 % (0.0-2.0); EOSINOPHILS 0.1 % (0-7); HEMATOCRIT 39.4 % (42.0-54.0); HEMOGLOBIN 12.5 g/dL (13.5-17.5); IMMATURE GRANULOCYTES 0.4 % (0-5); LYMPHOCYTES 9.3 % (15-50); MCH 25.5 pg (26.0-34.0); MCHC 31.7 g/dL (31.0-37.0); MCV 80.4 fL (80.0-100.0); MEAN PLATELET VOLUME 10.8 fL (7.4-10.4); NEUTROPHILS 82.2 % (40-80); PLATELET COUNT 257 10x3/uL (130-400); RDW 17.5 % (11.5-14.5); WBC 12.1 10x3/uL (4.8-10.8)
[2016-10-02 04:54] LABS: ANION GAP 10.3 mmol/L (8-16); CALCIUM 9.2 mg/dL (8.5-10.1); CREATININE - SERUM 2.2 mg/dL (0.6-1.3); MAGNESIUM - SERUM 2.3 mg/dL (1.8-2.4); POTASSIUM - SERUM 5.3 mmol/L (3.5-5.1)
--- NOTE | 2016-10-02 05:10 | NUR ---
RESTING WITH NO DISTRESS. DENIES NEEDS. VSS. HOB UP. C/L IN REACH. CONT POC.
--- NOTE | 2016-10-02 07:00 | NUR ---
REC'D CARE OF PT. A&O X3.
--- NOTE | 2016-10-02 07:29 | NUR ---
HE REQUESTED NEWS PAPER. OBLIGED.
--- NOTE | 2016-10-02 07:57 | NUR ---
BREAKFAST TRAY SERVED.
--- NOTE | 2016-10-02 07:58 | NUR ---
INITIAL ASSESSMENT COMPLETED.
--- NOTE | 2016-10-02 09:12 | NUR ---
WAITING ON PHARMACY TO BRING UP ADAMARIS.
--- NOTE | 2016-10-02 11:23 | NUR ---
REASSESSMENT COMPLETED PER FLOW SHEET.
--- NOTE | 2016-10-02 11:38 | NUR ---
LUNCH TRAY SERVED
--- NOTE | 2016-10-02 13:00 | NUR ---
FAMILY AT BEDSIDE. UPDATED HER AFTER ASKING PT. IF OK TO DO SO.
--- NOTE | 2016-10-02 14:00 | NUR ---
RESTING WITH EYES CLOSED. DENIES NEEDS.
--- NOTE | 2016-10-02 14:30 | NUR ---
REASSESSMENT COMPLETED PER FLOW SHEET
--- NOTE | 2016-10-02 15:00 | NUR ---
FAMILY AT BEDSIDE. UPDATED BY PT.
[2016-10-03] VITALS (18 sets, daily range): BP systolic 133–172; BP diastolic 52–130
--- NOTE | 2016-10-03 01:10 | NUR ---
RESTING WITH NO DISTRESS. PRN NORCO PROVIDING PAIN CONTROL. VSS. SR ON THE MONITOR. SPO2 97% ON O2 AT 2 LPM NC. HOB UP. C/L IN REACH. CONT CURRENT POC.
--- NOTE | 2016-10-03 03:15 | NUR ---
REASSESSMENT COMPLETED. SEE FLOWSHEET FOR ALL FINDINGS. RESTING WITH NO DISTRESS. RESP UNLABORED. EXP WHEEZES THRU OUT UPPER LOBES. SPO2 97% ON O2 AT 2LPM. SR ON THE MONITOR. PULSES PALP. WEAK. GENERALIZED EDEMA NOTED. ABD SOFT, BSA X4. VOIDS TO URINAL. UP TO BSC WITH MINIMAL ASSIST. PRN PAIN MEDS PROVIDING PAIN CONTROL. HOB UP. C/L IN REACH. CONT CURRENT POC.
[2016-10-03 04:19] LABS: BASOPHILS 0.1 % (0.0-2.0); EOSINOPHILS 0 % (0-7); HEMATOCRIT 40.5 % (42.0-54.0); HEMOGLOBIN 12.8 g/dL (13.5-17.5); IMMATURE GRANULOCYTES 0.3 % (0-5); LYMPHOCYTES 8.4 % (15-50); MCH 25.5 pg (26.0-34.0); MCHC 31.6 g/dL (31.0-37.0); MCV 80.7 fL (80.0-100.0); MEAN PLATELET VOLUME 11.1 fL (7.4-10.4); MONOCYTES 11.7 % (2-11); NEUTROPHILS 79.5 % (40-80); PLATELET COUNT 259 10x3/uL (130-400); RBC 5.02 10x6/uL (4.20-6.10); RDW 17.6 % (11.5-14.5)
[2016-10-03 04:24] LABS: INR 3.14 (0.85-1.17); PROTIME 32.6 SECONDS (11.6-15.0)
[2016-10-03 04:50] LABS: ANION GAP 10.4 mmol/L (8-16); CALCIUM 8.5 mg/dL (8.5-10.1); CARBON DIOXIDE 27.2 mmol/L (21.0-32.0); CREATININE - SERUM 1.9 mg/dL (0.6-1.3); POTASSIUM - SERUM 5.6 mmol/L (3.5-5.1)
--- NOTE | 2016-10-03 05:05 | NUR ---
resting in bed with no distress. denies needs. vss. hob up. c/l in reach. cont poc.
--- NOTE | 2016-10-03 07:00 | NUR ---
REC'D CARE OF PT. A&O X3.
--- NOTE | 2016-10-03 08:20 | NUR ---
DISCUSSED INCREASING INR WITH CHRISTINE RENAL CLIPPER COUNTERS. SHE IS CHANGING DOSE.
--- NOTE | 2016-10-03 08:22 | NUR ---
CHRISTINE RENAL PARTS SALES MANAGER SAID TO HOLD FIRST DOSE OF PO LASIX AND GIVE IV DOSE INSTEAD.
--- NOTE | 2016-10-03 10:34 | NUR ---
REQUESTED H20. OBLIGED.
[2016-10-03 12:08] LABS: ANION GAP 12.7 mmol/L (8-16); CALCIUM 9.1 mg/dL (8.5-10.1); CARBON DIOXIDE 28.5 mmol/L (21.0-32.0); POTASSIUM - SERUM 5.2 mmol/L (3.5-5.1)
--- NOTE | 2016-10-03 12:40 | NUR ---
DR. VILLANUEVA AT BEDSIDE.
--- NOTE | 2016-10-03 12:56 | NUR ---
ORDERS REC'D TO TRANSFER TO FLOOR.
--- NOTE | 2016-10-03 17:05 | NUR ---
TRANSFERED TO ROOM 2110 BY PRERNA RYAN
[2016-10-04 00:30] VITALS: BP 146/94
[2016-10-04 04:30] VITALS: BP 164/97
[2016-10-04 06:21] LABS: ANION GAP 15.5 mmol/L (8-16); CALCIUM 8.6 mg/dL (8.5-10.1); CARBON DIOXIDE 25.1 mmol/L (21.0-32.0); CREATININE - SERUM 2.3 mg/dL (0.6-1.3); MAGNESIUM - SERUM 1.9 mg/dL (1.8-2.4); POTASSIUM - SERUM 5.6 mmol/L (3.5-5.1)
[2016-10-04 06:22] LABS: BASOPHILS 0.1 % (0.0-2.0); EOSINOPHILS 0 % (0-7); HEMATOCRIT 41.7 % (42.0-54.0); HEMOGLOBIN 13.2 g/dL (13.5-17.5); IMMATURE GRANULOCYTES 0.6 % (0-5); LYMPHOCYTES 9.7 % (15-50); MCH 25.3 pg (26.0-34.0); MCHC 31.7 g/dL (31.0-37.0); MEAN PLATELET VOLUME 11.1 fL (7.4-10.4); MONOCYTES 9.3 % (2-11); NEUTROPHILS 80.3 % (40-80); PLATELET COUNT 267 10x3/uL (130-400); RBC 5.21 10x6/uL (4.20-6.10); RDW 17.5 % (11.5-14.5); WBC 11.3 10x3/uL (4.8-10.8)
[2016-10-04 07:35] VITALS: BP 129/80
[2016-10-04 11:22] VITALS: BP 130/86
--- NOTE | 2016-10-04 12:00 | NUR ---
SITTING UP IN CHAIR EATING. ALERT AND ORIENTED X4. COMPLAINS OF PAIN 6/10. INITIATE PAIN MANAGEMENT. SINUS RHYTHM 92bpm ON TELEMETRY. CONTINUE PLAN OF CARE. CHAIR LOCKED. CALL LIGHT IN REACH.
[2016-10-04 15:34] VITALS: BP 113/79
--- NOTE | 2016-10-04 18:05 | NUR ---
RESTING IN BED. DENIES PAIN. SOB TREATED WITH O2 THERAPY. COMPLAINS OF BEING DIZZY WHEN STANDING. BP-113/79. COREG HELD. CONTINUE PLAN OF CARE. BED LOCKED AND LOW. CALL LIGHT IN REACH. SINUS RHYTHM 75bpm ON TELEMETRY.
--- NOTE | 2016-10-04 19:40 | NUR ---
rec'd. in bed watching tv.c/o low back pain. norco 10mg one given po for relief.will continue to monitor for any chges. in resp.status and follow current plan of care
[2016-10-04 22:42] VITALS: BP 139/96
[2016-10-05 05:35] VITALS: BP 161/98
[2016-10-05 07:03] LABS: BASOPHILS 0.1 % (0.0-2.0); EOSINOPHILS 0.1 % (0-7); HEMATOCRIT 47.7 % (42.0-54.0); HEMOGLOBIN 15.4 g/dL (13.5-17.5); IMMATURE GRANULOCYTES 2.3 % (0-5); LYMPHOCYTES 12.1 % (15-50); MCH 25.9 pg (26.0-34.0); MCHC 32.3 g/dL (31.0-37.0); MCV 80.3 fL (80.0-100.0); MEAN PLATELET VOLUME 10.7 fL (7.4-10.4); NEUTROPHILS 72.4 % (40-80); PLATELET COUNT 296 10x3/uL (130-400); RBC 5.94 10x6/uL (4.20-6.10); RDW 17.5 % (11.5-14.5); WBC 13.6 10x3/uL (4.8-10.8)
[2016-10-05 07:18] LABS: ANION GAP 13.2 mmol/L (8-16); CALCIUM 9.9 mg/dL (8.5-10.1); CREATININE - SERUM 2.4 mg/dL (0.6-1.3); MAGNESIUM - SERUM 2.1 mg/dL (1.8-2.4); POTASSIUM - SERUM 5.2 mmol/L (3.5-5.1)
[2016-10-05 07:25] VITALS: BP 138/98
--- NOTE | 2016-10-05 09:30 | NUR ---
ALERT AND ORIENTED X4. SITTING UP IN CHAIR. COMPLAINS OF NAUSEA. PAIN MANAGEMENT CONTINUED. SINUS TACH 133bpm ON TELEMETRY. NOTIFY OF POTASSIUM LEVEL 5.2. OBTAIN ORDER FOR ZOFRAN PRN. PATIENT BECOMING DEMANDING AND VERBALLY AGGRESSIVE WANTING ZOFRAN. EXPLAIN THE ORDER WAS JUST PUT IN. WILL GET MEDICATION SOON POSSIBLE. CONTINUE PLAN OF CARE AND SAFETY PRECAUTIONS.
[2016-10-05 11:21] VITALS: BP 117/77
--- NOTE | 2016-10-05 12:08 | NUR ---
Nutrition follow-up: Diet: Renal ADA consistent CHO PO intake ~75% average of last 9 meals Labs reviewed Wt: 212# Will continue to provide food choices with selective menus and honor food preferences within diet restrictions. RDN following.
--- NOTE | 2016-10-05 14:23 | NUR ---
ALERT AND ORIENTED X4. CONVERT FROM SINUS TACH TO A-FLUTTER 123bp ON TELEMETRY. EKG COMPLETE ON CHART. CARDIOLOGY CONSULTED. INITIATE PAIN MANAGEMENT FOR ABDOMINAL PAIN 03/12. RECIEVING UPDRAFT TREATMENT FOR SOB. CONTINUE PLAN OF CARE AND SAFETY PRECAUTIONS.
[2016-10-05 15:33] VITALS: BP 105/81
--- NOTE | 2016-10-05 17:05 | NUR ---
INITIATE CARDIZEM DRIP AT 10mL/HR ORDERED. A-FLUTTER 132bpm ON TELEMETRY. BP-118/83. CONTINUE TO MONITOR BP AND HR. CONTINUE PLAN OF CARE AND SAFETY PRECAUTIONS.
--- NOTE | 2016-10-05 18:14 | NUR ---
ALERT AND ORIENTED X4. DENIES SOB. A-FLUTTER 128bpm ON TELEMETRY. CARDIZEM DRIP AT 10mL/HR CONTINUED. BP-125/56. PAIN MANAGEMENT CONTINUED. IN ROOM FOR CONSULT. BED LOCKED AND LOW. CALL LIGHT IN REACH. ONE SIDERAIL UP PER PATIENT REQUEST.
--- NOTE | 2016-10-05 19:12 | NUR ---
Received patient in bed resting, alert and oriented x 4. Oxygen on @2L/min. IV Cardizem infusing @10ml/hr. Monitoring vital signs. monitoring engineer on. Showing A-Flutter HR = 130/min. Denies any pain or discomfort, denies any sensation of heart palpitations.
--- NOTE | 2016-10-05 19:38 | NUR ---
Called Pharmacy, Mag Citrate still not available to give3 patient 1815 dose.
--- NOTE | 2016-10-05 22:00 | NUR ---
Mag Citrate still not available from Pharmacy. Checked fridge, pixus and patient's own stitch bonding machine drawer in cabinet. Called Oil Burner Repairer.
--- NOTE | 2016-10-05 22:13 | NUR ---
Given [place] po PRN for back pain rated 9/10 and some abdominal discomfort wich he did not rate. Will monitor for effectiveness.
[2016-10-05 22:28] VITALS: BP 100/70
--- NOTE | 2016-10-05 22:31 | NUR ---
Obtained Mag Citrate from another unit, given same to patient. Cooperative and tolerated same. Continues to have abdominal discomfort, awaiting effectiveness of PRN analgesic.
[2016-10-06 00:59] VITALS: BP 145/97
--- NOTE | 2016-10-06 02:30 | NUR ---
Up to bathroom, unwitnessed, patient reports that he had large soft BM. Good results from Mag Citrate given earlier. States no longer having abdominal discomfort, feeling much better.
--- NOTE | 2016-10-06 04:39 | NUR ---
Complains of 10/10 lower back pain, given [place] po PRN for same. Will monitor for effectiveness.
--- NOTE | 2016-10-06 05:18 | NUR ---
Certification And Selection Specialist stated patient's heart rhythm has just now converted from uncontrolled A-Fib/Flutter to sinus rhythm with bundle branch block, HR=70/min. Cardizem gtt infusing.
[2016-10-06 05:21] VITALS: BP 139/76
[2016-10-06 08:00] VITALS: BP 128/77
[2016-10-06 09:08] LABS: BASOPHILS 0.1 % (0.0-2.0); EOSINOPHILS 0.3 % (0-7); HEMATOCRIT 44.9 % (42.0-54.0); HEMOGLOBIN 14.6 g/dL (13.5-17.5); IMMATURE GRANULOCYTES 1.4 % (0-5); MCH 26.2 pg (26.0-34.0); MCHC 32.5 g/dL (31.0-37.0); MCV 80.6 fL (80.0-100.0); MEAN PLATELET VOLUME 10.6 fL (7.4-10.4); MONOCYTES 14.4 % (2-11); NEUTROPHILS 70.8 % (40-80); PLATELET COUNT 299 10x3/uL (130-400); RBC 5.57 10x6/uL (4.20-6.10); RDW 17.2 % (11.5-14.5); WBC 13.4 10x3/uL (4.8-10.8)
[2016-10-06 09:16] LABS: ANION GAP 10.9 mmol/L (8-16); CALCIUM 9.1 mg/dL (8.5-10.1); CARBON DIOXIDE 30.9 mmol/L (21.0-32.0); CREATININE - SERUM 2.7 mg/dL (0.6-1.3); POTASSIUM - SERUM 4.8 mmol/L (3.5-5.1)
[2016-10-06 12:00] VITALS: BP 127/78
--- NOTE | 2016-10-06 14:25 | CN ---
PATIENT NAME:TRAVIS VILLALBA MEDICAL RECORD: [id number] : 55 LOCATION:[facility]. D.2110 ADMIT DATE: 09/29/16 ACCOUNT: [id number] CONSULTING PHYSICIAN: OKSANA HAGER MD REFERRING PHYSICIAN: AMOL VILLANUEVA MD DATE OF CONSULTATION: 10/05/2016 Gastroenterology Consultation REFERRING PHYSICIAN: Amol Villanueva MD HISTORY OF PRESENT ILLNESS: The patient is a 61-year-old black male, who was basically admitted with what sounds like an upper respiratory infection/COPD exacerbation. I was asked to see the patient because of a several day history of persistent problem with abdominal fullness and bloating, which was making difficult to eat. On chart review, he presented to me with basically the same symptoms 4 years ago and underwent both an EGD and colonoscopy at that time. His EGD was completely normal. Biopsy is negative for H. pylori. His colonoscopy was also completely normal other than mild diffuse diverticulosis, small grade II internal hemorrhoids, and the most striking finding was a poor prep suggesting very significant chronic constipation. At that time, he was taking [place] and I recommend him cutting back on those pain meds. Also, I told him to take MiraLax every day. I have not seen him since then. The patient is still taking pain meds, though apparently is not as often as he was back again. He does admit to being chronically constipated. He does not take his MiraLax daily. PAST MEDICAL HISTORY: As above. He has hypertension, gout, CHF, hyperlipidemia, rheumatoid arthritis, diabetes, aortic valve disease status post aortic valve replacement as well as coronary artery disease, cerebrovascular disease, chronic pain syndrome and cardiac arrhythmias. PAST SURGICAL HISTORY: Remarkable for a CABG and aortic valve replacement by Dr. Mac. He has had multiple ____ stents. He has uncontrolled type 2 diabetes on insulin as well as chronic renal disease with a baseline creatinine around 2-2.5. He has also had bilateral shoulder replacements. ALLERGIES: No known drug allergies. HOME MEDICATIONS: Include Augmentin, Proventil, Flomax, Plavix, Coumadin, amiodarone, amlodipine, Coreg, doxazosin, isosorbide, nitroglycerin, clonidine patch, amitriptyline, aspirin, gabapentin, [place], Lasix, Symbicort and Lantus. SOCIAL HISTORY: The patient drinks occasionally. He used cocaine in the past. He smokes marijuana. He stopped smoking cigarettes a month ago. FAMILY HISTORY: Negative for GI diseases. REVIEW OF SYSTEMS: Noncontributory other than in the HPI. PHYSICAL EXAMINATION: GENERAL: Reveals an elderly black male in mild distress. CONSULT REPORT [id number] DEJEAYTRAVIS TRUDY VITAL SIGNS: Stable, afebrile. CHEST: Reveals a few bilateral wheezes. HEART: Regular rate and rhythm. ABDOMEN: Fairly soft, but definitely protuberant with minimal diffuse tenderness present. EXTREMITIES: No edema. LABORATORY DATA: At present reveals a white count of 13,000, hematocrit 47, MCV of 80 and platelet count 296,000. Electrolytes are normal. BUN 59 and creatinine 2.4. Liver enzymes are normal. IMPRESSION: Bloating and abdominal fullness, which is chronic in nature. Again, he has had a negative workup in September 2012 for basically the same symptoms. That workup revealed him to have significant constipation, which was felt to be the cause of his symptoms. It was felt due to chronic [place] use. RECOMMENDATION: 1. KUB. 2. Twice daily around the clock MiraLax and mineral oil. 3. At this point, I doubt he will need endoscopy. TRANSINT:[id number] Voice Confirmation ID: [id number] DOCUMENT ID: [id number] OKSANA HAGER MD at 1425 CC: AMOL VILLANUEVA MD [id number] DICTATION DATE: 10/05/161813 MASS SPEC: [id number] ADM IN [place] [id number] [place] [id number]
[2016-10-06 16:00] VITALS: BP 128/77
--- NOTE | 2016-10-06 19:25 | NUR ---
RECEIVED REPORT, IV-L.CHEST-IP-SL, [id number], BED IS LOW, SRX2, CALL LIGHT IN REACH,
[2016-10-06 20:26] VITALS: BP 126/80
--- NOTE | 2016-10-06 20:48 | NUR ---
BLOODSUGAR-227, COVERED WITH 8 UNITS
[2016-10-07 00:38] VITALS: BP 135/81
--- NOTE | 2016-10-07 03:53 | NUR ---
ENROLLMENT SPECIALIST AT BEDSIDE TO OBTAIN VITALS, CALL LIGHT IN REACH. WILL CONTINUE WITH PLAN OF CARE.
[2016-10-07 04:40] VITALS: BP 128/78
--- NOTE | 2016-10-07 07:30 | NUR ---
RECIEVED REPORT ON PATIENT,PATIENT IS ALERT AND ORIENTED AT THIS TIME. AMBULATING HALLWAYS. PATIENT HAS A L CHEST IP THAT IS SL AT THIS TIME. PATIENT IS SR ON MONITOR WITH A RATE OF 86 AT THIS TIME. PATIENT REQUESTING PAIN PILL AT THIS TIME, NOT TIME YET. WILL GIVE WHEN DUE. PATIENT DENIES ANY OTHER NEEDS. CPOC
[2016-10-07 08:00] VITALS: BP 135/94
--- NOTE | 2016-10-07 08:30 | NUR ---
PATIENT MORNING MEDICATION GIVEN, ASSESSMENT DONE. DENIES ANY NEEDS. NORCO GIVEN FOR BACK PAIN 06/12, DENIES ANY OTHER COMPLAINTS. CPOC
--- NOTE | 2016-10-07 08:45 | NUR ---
45 UNITS OF LANTUS GIVEN AND 10 UNITS OF HUMALOG GIVEN FOR FSBS 285. ASKED PATIENT IF HE WANTED ALL OF THE INSULIN DUE TO GOING FOR HEART CATH THIS AFTERNOON AND BEING NPO AFTER BREAKFAST AND HE STATED "YES". CPOC
[2016-10-07 09:27] LABS: BASOPHILS 0.1 % (0.0-2.0); EOSINOPHILS 0.1 % (0-7); HEMATOCRIT 42.5 % (42.0-54.0); HEMOGLOBIN 13.5 g/dL (13.5-17.5); IMMATURE GRANULOCYTES 1.1 % (0-5); LYMPHOCYTES 10.1 % (15-50); MCH 25.6 pg (26.0-34.0); MCHC 31.8 g/dL (31.0-37.0); MCV 80.6 fL (80.0-100.0); MEAN PLATELET VOLUME 10.5 fL (7.4-10.4); MONOCYTES 11.6 % (2-11); PLATELET COUNT 302 10x3/uL (130-400); RBC 5.27 10x6/uL (4.20-6.10); RDW 17.3 % (11.5-14.5); WBC 12.3 10x3/uL (4.8-10.8)
[2016-10-07 09:48] LABS: ANION GAP 15.1 mmol/L (8-16); CALCIUM 9.3 mg/dL (8.5-10.1); CARBON DIOXIDE 27.3 mmol/L (21.0-32.0); CREATININE - SERUM 3.1 mg/dL (0.6-1.3); POTASSIUM - SERUM 5.4 mmol/L (3.5-5.1)
--- NOTE | 2016-10-07 11:42 | NUR ---
patient preop and ready for incinerator plant laborer
--- NOTE | 2016-10-07 11:45 | NUR ---
PATIENT FSBS 301, 10 UNITS OF HUMALOG GIVEN PER SLIDING SCALE. CPOC
[2016-10-07 12:00] VITALS: BP 130/78
--- NOTE | 2016-10-07 12:15 | NUR ---
PATIENT GONE TO SAND CUTTER OPERATOR
[2016-10-07 12:21] LABS: INR 3.39 (0.85-1.17); PROTIME 34.7 SECONDS (11.6-15.0)
--- NOTE | 2016-10-07 15:00 | NUR ---
PATIENT BACK FROM CORPORATE LEARNING CONSULTANT, VSS BP 110/78 HR 81, O2 SAT 98% ON 4L/MIN VIA NC. PATIENT HAS A FEMSTOP TO LEFT GROIN, NO BLEEDING NOTED. PATIENT RESTING. WILL CONT TO MONITOR. CPOC
[2016-10-07 16:00] VITALS: BP 121/74
--- NOTE | 2016-10-07 16:00 | NUR ---
STARTED TO REMOVE AIR FROM FEMSTOP, NO BLEEDING NOTED. VSS. WILL MONITOR. PATIENT RESTING. NAD NOTED. CHEST RISES AND FALLS EQUALLY. CPOC
--- NOTE | 2016-10-07 16:23 | OP ---
PATIENT NAME: TRAVIS HAMILTON MEDICAL RECORD: [id number] :55 LOCATION:D.M2 D.0 ADMISSION DATE:09/29/16 SURGEON: AIDEN CARLSON MD DATE OF OPERATION: 10/07/2016 PROCEDURE: Attempted but failed antegrade approach left femoral artery. PROCEDURE IN DETAIL: Mr. Hamilton was brought to the general labor table after informed consent was obtained and after detailed explanation of risks, benefits as well as alternative therapies, the patient elected to proceed with angiogram and attempted angioplasty. We attempted to antegrade stick the left femoral area; however, this could not be performed secondary to his worsening respiratory status, continued coughing. The artery was cannulated with a Seldinger needle. Wire was advanced; however, due to his respiratory status, we could not advance the sheath. At this time, we aborted the procedure. Hemostasis was obtained via direct compression ____ returned to the room in stable hemodynamic condition. TRANSINT:[id number] Voice Confirmation ID: [id number] DOCUMENT ID: [id number] AIDEN CARLSON MD at 1623 CC: [id number] DICTATION DATE: 10/07/16 1258 FELTER TENNIS BALLS: 10/07/16 1432 ADM IN [place] [id number] [place] [address]
--- NOTE | 2016-10-07 18:01 | NUR ---
PATIENT STILL SLEEPING, AROUSES TO VOICE DOESN'T WANT DINNER TRAY AT THIS TIME, WILL LEAVE FOR LATER. L GROIN SOFT, NO SIGNS OF BLEEDING NOTED. VSS. CPOC
--- NOTE | 2016-10-07 19:22 | NUR ---
RECEIVED REPORT, 02-2.5L,IV-L. INFUSAPORT-SL, [id number], EATING SANDWICH, FAMILY AT BEDSIDE, DENIES ANY NEEDS, CALL LIGHT IN REACH, BED IS LOW
[2016-10-07 19:51] VITALS: BP 115/72
--- NOTE | 2016-10-07 20:10 | NUR ---
BLOODSUGAR-68, NO COVERAGE NEEDED
--- NOTE | 2016-10-07 23:49 | NUR ---
BLOODSUGAR -91, NO COVERAGE
[2016-10-08] VITALS: BP 134/81
--- NOTE | 2016-10-08 05:30 | NUR ---
CALL LIGHT IN REACH. WILL CONTINUE WITH PLAN OF CARE.
--- NOTE | 2016-10-08 07:01 | NUR ---
Nutrition follow-up: Diet advanced to renal ada post heart cath PO intake ~50% of meals Labs reviewed Wt: 216# +BM RDN following.
--- NOTE | 2016-10-08 07:30 | NUR ---
ASSESSMENT COMPLETED. SEDATED, BUT ROUSES TO STEMLI. 02 A5 2.5 L/M PER NC. PT HAS A LEFT IP THAT IS SL. HIS BLOOD SUGAR IS 41. GIVEN D50 WHICH RAISED IT TO 111. TELEMERTY SHOWS SR. WILL MONITOR
--- NOTE | 2016-10-08 07:49 | NUR ---
ASSESSMENT COMPLETED. AWAKE AND ALERT. DENIES ANY NEEDS. CALL LIGHT IN REACH WITH SR UP. BED ALARM ON. IV TO RIGHT AC. WILL MONITOR
[2016-10-08 09:01] VITALS: BP 125/81
--- NOTE | 2016-10-08 11:00 | NUR ---
SLEEPING QUIETLY ALL AM. WARM AND DRY RESP WITH EASE. MONITOR SHOWS NSR. WILL CONTINUE TO MONITOR
[2016-10-08 13:09] VITALS: BP 116/68
--- NOTE | 2016-10-08 16:09 | NUR ---
UP ON SIDE OF BED. DENIES ANY NEEDS. CALL LIGHT IN REACH WITH SR UP. WILL MONITOR
[2016-10-08 16:43] VITALS: BP 124/76
--- NOTE | 2016-10-08 19:16 | NUR ---
RECEIVED REPORT, RECEIVING BREATHING TREATMENT, IV-L.INFUSAPORT-SL, CALL LIGHT IN REACH, BED IS LOW, SRX2, DENIES ANY NEEDS
--- NOTE | 2016-10-08 19:52 | NUR ---
[facility]-390, GAVE 16UNITS HUMALOG
[2016-10-08 21:00] VITALS: BP 149/73
[2016-10-09 00:42] VITALS: BP 110/74
--- NOTE | 2016-10-09 04:11 | NUR ---
BLOODSUGAR-82, GAVE MILK AND GRAM CRACKERS
--- NOTE | 2016-10-09 04:58 | NUR ---
PT RESTING WITHOUT C/O OR DISTRESS NOTED. CALL LIGHT WITHIN REACH. WILL CONT TO MONITOR.
[2016-10-09 07:18] VITALS: BP 159/89
[2016-10-09 07:26] VITALS: BP 159/89
--- NOTE | 2016-10-09 07:30 | NUR ---
PT RESTING IN BED WITH EYES CLOSED NO ACUTE DISTRESS NOTED VOICES ALL NEEDS OT STAFF MOBILE PER SELF AMBULATION WITH STEADY GAIT. TELEMETRY SHOWS SR WITH RATE OF 87 WILL CONTINUE TO MONITOR.
[2016-10-09 07:35] LABS: BASOPHILS 0.1 % (0.0-2.0); EOSINOPHILS 0.1 % (0-7); HEMATOCRIT 39.4 % (42.0-54.0); HEMOGLOBIN 12.4 g/dL (13.5-17.5); IMMATURE GRANULOCYTES 1.9 % (0-5); LYMPHOCYTES 9.3 % (15-50); MCH 25.6 pg (26.0-34.0); MCHC 31.5 g/dL (31.0-37.0); MCV 81.2 fL (80.0-100.0); MEAN PLATELET VOLUME 10.4 fL (7.4-10.4); MONOCYTES 10.6 % (2-11); PLATELET COUNT 262 10x3/uL (130-400); RBC 4.85 10x6/uL (4.20-6.10); RDW 17.7 % (11.5-14.5)
[2016-10-09 07:37] LABS: WBC 15.9 10x3/uL (4.8-10.8)
[2016-10-09 07:43] LABS: INR 2.8 (0.85-1.17); PROTIME 29.7 SECONDS (11.6-15.0)
[2016-10-09 07:53] LABS: ALBUMIN 2.3 g/dL (3.4-5.0); ANION GAP 8.9 mmol/L (8-16); BILIRUBIN - TOTAL 0.54 mg/dL (0.2-1.3); CALCIUM 9.3 mg/dL (8.5-10.1); CARBON DIOXIDE 30.9 mmol/L (21.0-32.0); CREATININE - SERUM 2.2 mg/dL (0.6-1.3); POTASSIUM - SERUM 4.8 mmol/L (3.5-5.1); PROTEIN - SERUM 6.5 g/dL (6.4-8.2)
--- NOTE | 2016-10-09 10:32 | NUR ---
PT TOOK ALL AM MEDS WITH NO DIFFICULTY WILL CONTINUE TO MONITOR.
[2016-10-09 11:30] VITALS: BP 106/64
[2016-10-09 15:21] VITALS: BP 138/87
--- NOTE | 2016-10-09 16:33 | NUR ---
LYING IN BED NO COMPLAINTS VOICED ALERT AND ORINETED X 3 LUNGS WITH DIMINISHED SOUNDS TO BILAT BASES.
--- NOTE | 2016-10-09 19:16 | NUR ---
NO DISTRESS NOTED SITTING IN CHAIR AT BEDSIDE EATING APPLE
[2016-10-09 20:30] VITALS: BP 123/71
--- NOTE | 2016-10-09 21:00 | NUR ---
ALERT/AWAKE WATCHING TV. ADMIN SCHED MEDS. CHECKED BS AT 379. ADMIN HUMALOG 16 UNITS. GAVE HIM DIABETIC SNACK.
[2016-10-10 00:10] VITALS: BP 131/78
--- NOTE | 2016-10-10 01:10 | NUR ---
ADMIN MAXIPIME 1GM IV PER DR DILL'S ORDER.
--- NOTE | 2016-10-10 02:49 | NUR ---
C/O BACK PAIN LEVEL 8/10 SCALE, DESCRIBED ACHING/THROBBING. ADMIN FLEXERIL 5 MG PO. WILL CONT TO MONITOR.
[2016-10-10 04:20] VITALS: BP 115/73
--- NOTE | 2016-10-10 04:30 | NUR ---
ADMIN ZOFRAN 4MG PO PER C/O NAUSEA. CHECKED BS AT 192. REFUSED INSULIN, STATING "I FEEL THAT IT IS LOW AND NEED SOME SUGAR". AMBULATED FROM BED TO CHAIR AND BECAME SOB. REPLACED HIS AT 2L. WILL CONT TO MONITOR CLOSELY.
--- NOTE | 2016-10-10 04:48 | NUR ---
C/O SOB, STATING "I AM HAVING A HARD TIME BREATHING". CHECKED 02 SAT'S AT 98% ON 02 AT 2L/NC. HIS ABD IS VERY DISTENDED AND FIRM. AUSCULTATED WHEEZES IN UPPER LOBES. ADMIN FUROSEMIDE 60MG PO EARLIER THAN SCHED AT 6AM TO SEE IF THIS WILL HELP TO ALLEVIATE HIS SOB.
[2016-10-10 07:35] VITALS: BP 111/51
[2016-10-10 07:57] LABS: BASOPHILS 0.1 % (0.0-2.0); EOSINOPHILS 0.1 % (0-7); HEMATOCRIT 38.3 % (42.0-54.0); IMMATURE GRANULOCYTES 1.8 % (0-5); LYMPHOCYTES 5.8 % (15-50); MCH 25.6 pg (26.0-34.0); MCHC 31.3 g/dL (31.0-37.0); MCV 81.8 fL (80.0-100.0); MEAN PLATELET VOLUME 9.7 fL (7.4-10.4); MONOCYTES 11.5 % (2-11); NEUTROPHILS 80.7 % (40-80); PLATELET COUNT 216 10x3/uL (130-400); RBC 4.68 10x6/uL (4.20-6.10); WBC 16.9 10x3/uL (4.8-10.8)
[2016-10-10 08:00] VITALS: BP 111/90
--- NOTE | 2016-10-10 08:03 | NUR ---
FOUND PATIENT UNRESPONSIVE. CHECKED BS AT 21. RAPID RESPONSE CALLED. RAPID RESPONSE TEAM PRESENT IN ROOM.
[2016-10-10 08:09] LABS: ANION GAP 7.4 mmol/L (8-16); CALCIUM 9.4 mg/dL (8.5-10.1); CARBON DIOXIDE 33.8 mmol/L (21.0-32.0); CREATININE - SERUM 2.2 mg/dL (0.6-1.3); POTASSIUM - SERUM 4.2 mmol/L (3.5-5.1)
--- NOTE | 2016-10-10 09:00 | NUR ---
FOLLOW UP ON LAB. FSBS 171.
[2016-10-10 11:20] VITALS: BP 96/58
[2016-10-10 15:28] VITALS: BP 106/64
--- NOTE | 2016-10-10 21:13 | NUR ---
PT AWAKE, ALERT, ORIENTED, DENIES ANY NEEDS. PT IS REQUESTING HIS PAIN MEDICATION IN WHICH SHOWS TO BE D/C'D AT THIS TIME. WE DISCUSSED THE EVENTS THIS MORNING AND HIS MENTAL ALERTNESS, WELL HIS BREATHING, EATING, AND COMPLIANCE WITH HIS GLUCOSE. PT STATES HE HAS FELT WELL ALL DAY, AND UNDERSTANDS THAT IT IS PRECAUTIONARY THAT WE HOLD ANY MEDICATIONS THAT CAN INDUCE AND MENTAL STATUS CHANGES, OR SHALLOW RESPIRATIONS. WILL CONTINUE TO MONITOR CLOSELY. BED LOW, CALL LIGHT IN REACH, SIDE RAILS X 2, HOB 30 DEGREES.
[2016-10-11] VITALS: BP 117/72
--- NOTE | 2016-10-11 01:16 | NUR ---
PT LYING IN BED, EYES CLOSED, RESPIRATIONS EVEN AND UNLABORED. CONTINUE TO MONITOR CLOSELY. BED LOW, CALL LIGHT IN REACH, SIDE RAILS X 2, HOB 20 DEGREES.
--- NOTE | 2016-10-11 03:12 | NUR ---
PT AWAKE, ALERT, ORIENTED, REQUESTING PAIN MEDICATION FOR CHRONIC BACK PAIN. I EXPLAINED TO HIM AGAIN THAT THERE IS NONE ORDERED AT THIS TIME R/T BEING HIS AMS CHANGES YESTERDAY MORNING R/T HIS GLUCOSE BEING LOW. I DID GIVE PT HIS PRN 5MG FLEXERIL. DENIES ANY OTHER NEEDS. CONTINUE TO MONITOR CLOSELY.
--- NOTE | 2016-10-11 06:19 | NUR ---
PT AWAKE, ALERT, ORIENTED, DENIES ANY NEEDS OTHER THAN WANTING PRN PAIN MEDICATION. CONTINUE TO MONITOR CLOSELY. PTS INFUSAPORT IS OCCLUDED AT THIS TIME. WILL INSERT NEW HUB.
[2016-10-11 06:29] LABS: BASOPHILS 0.1 % (0.0-2.0); EOSINOPHILS 0.2 % (0-7); HEMATOCRIT 36.7 % (42.0-54.0); HEMOGLOBIN 11.4 g/dL (13.5-17.5); IMMATURE GRANULOCYTES 1.9 % (0-5); LYMPHOCYTES 9.5 % (15-50); MCH 25.4 pg (26.0-34.0); MCHC 31.1 g/dL (31.0-37.0); MCV 81.7 fL (80.0-100.0); MEAN PLATELET VOLUME 10.2 fL (7.4-10.4); MONOCYTES 9.8 % (2-11); NEUTROPHILS 78.5 % (40-80); PLATELET COUNT 238 10x3/uL (130-400); RBC 4.49 10x6/uL (4.20-6.10); RDW 17.7 % (11.5-14.5); WBC 14.5 10x3/uL (4.8-10.8)
[2016-10-11 06:54] LABS: ANION GAP 11.3 mmol/L (8-16); CALCIUM 9.2 mg/dL (8.5-10.1); CARBON DIOXIDE 29.6 mmol/L (21.0-32.0); CREATININE - SERUM 2.4 mg/dL (0.6-1.3); MAGNESIUM - SERUM 1.9 mg/dL (1.8-2.4)
[2016-10-11 06:55] LABS: POTASSIUM - SERUM 4.9 mmol/L (3.5-5.1)
[2016-10-11 08:45] VITALS: BP 109/78
[2016-10-11 13:14] VITALS: BP 133/94
[2016-10-11] MEDS ORDERED: CARDIZEM CD180 MG PO (14:03)
[2016-10-11] MEDS ORDERED: HYDROCODONE-APA1 TAB PO (14:04)
--- NOTE | 2016-10-11 15:02 | NUR ---
Patient Name: TRAVIS VILLALBA Encounter No: [id number] : 1955 Primary Insurance: [id number] Anticipated DC Date: 10-11-2016 Planned Disposition: Home DCP follow-up note: CM MET WITH PT IN ROOM TO DISCUSS DISCHARGE NEEDS AND PLANNING. CM DISCUSSED AVAILABILITY OF HOME HEALTH, REHAB SERVICES AND MEDICAL EQUIPMENT. PT DENIES DISCHARGE NEEDS. CM ASKED PT IF HOME HEALTH COULD CALL HIM AFTER DISCHARGE HOME TO CHECK ON HIM AND SEE IF HE NEEDS ANY HOME SERVICES, PT DECLINED AND REPORTS HE IS READY TO GO NOW. PT REPORTS A FRIEND TO TAKE HIM HOME IS DOWNSTAIRS NOW TO TRANSPORT HOME. IMPORTANT MESSAGE FROM [employer] PROVIDED AND EXPLAINED. Hemant Reeves, CASE MANAGEMENT
--- NOTE | 2016-10-11 16:04 | NUR ---
ALERT AND ORIENTED X4. SITTING UP IN CHAIR. DC LT CHEST IP NEEDLE. TIP INTACT. DISCHARGE INSTRUCTIONS. GIVEN VERGALLY AND WRITTEN. DISCHARGE PAPERS SIGNED ON CHART. ESCORT TO RIDE VIA WHEELCHAIR. REMAINS FREE FROM INJURY.
== END 2016-10-11 16:06 | disposition home or self-care (01) | DRG 190 ==
LOC: D.ER 13:12 → D.MS 16:41 → D.M2 16:41 → D.ICU 16:41 → D.M2 10-03 17:06
PROVIDERS: Emergency Medicine; Internal Medicine; Internal Medicine Interventional Cardiology; Internal Medicine Nephrology; Internal Medicine Pulmonary Disease; ADMIT Family Medicine
DX: J44.0 Chronic obstructive pulmonary disease with (acute) lower respiratory infection (principal); J18.9 Pneumonia, unspecified organism; I50.23 Acute on chronic systolic (congestive) heart failure; I13.0 Hypertensive heart and chronic kidney disease with heart failure and stage 1 through stage 4 chronic kidney disease, or unspecified chronic kidney disease; N17.9 Acute kidney failure, unspecified; D68.9 Coagulation defect, unspecified; F17.203 Nicotine dependence unspecified, with withdrawal; E87.1 Hypo-osmolality and hyponatremia; J20.9 Acute bronchitis, unspecified; J44.1 Chronic obstructive pulmonary disease with (acute) exacerbation; E11.22 Type 2 diabetes mellitus with diabetic chronic kidney disease; E11.65 Type 2 diabetes mellitus with hyperglycemia; N18.3 Chronic kidney disease, stage 3 (moderate); I25.10 Atherosclerotic heart disease of native coronary artery without angina pectoris; I73.9 Peripheral vascular disease, unspecified; Z79.01 Long term (current) use of anticoagulants; E87.5 Hyperkalemia; R00.0 Tachycardia, unspecified; Z91.15 Patient's noncompliance with renal dialysis; Z95.2 Presence of prosthetic heart valve; R14.0 Abdominal distension (gaseous); K59.00 Constipation, unspecified

== ENCOUNTER 2016-10-31 08:56 | Emergency (ER) | payer MEDICARE, MEDICAID ==
[2016-09-30 12:21] VITALS: BMI 39.1
[~2016-10-31 08:56] MED LIST changes: +CARDIZEM CD180 MG PO
[2016-10-31 10:22] LABS: BASOPHILS 0.5 % (0.0-2.0); HEMATOCRIT 38.8 % (42.0-54.0); HEMOGLOBIN 12.1 g/dL (13.5-17.5); IMMATURE GRANULOCYTES 0.6 % (0-5); MCH 25.4 pg (26.0-34.0); MCHC 31.2 g/dL (31.0-37.0); MCV 81.5 fL (80.0-100.0); MEAN PLATELET VOLUME 10.1 fL (7.4-10.4); MONOCYTES 8.6 % (2-11); NEUTROPHILS 72.3 % (40-80); PLATELET COUNT 414 10x3/uL (130-400); RBC 4.76 10x6/uL (4.20-6.10); RDW 17.6 % (11.5-14.5); WBC 9.8 10x3/uL (4.8-10.8)
[2016-10-31 10:27] LABS: INR 2.53 (0.85-1.17); PROTIME 27.4 SECONDS (11.6-15.0)
[2016-10-31 10:34] LABS: ALBUMIN 2.7 g/dL (3.4-5.0); ALKALINE PHOSPHATASE 118 U/L (46-116); ALT (SGPT) 32 U/L (10-68); BILIRUBIN - TOTAL 0.45 mg/dL (0.2-1.3); CALC OSMOLALITY 280 mosm/kg (275-300); CALCIUM 8.9 mg/dL (8.5-10.1); CARBON DIOXIDE 25.4 mmol/L (21.0-32.0); CHLORIDE - SERUM 104 mmol/L (98-107); GLUCOSE 167 mg/dL (74-106); POTASSIUM - SERUM 5.2 mmol/L (3.5-5.1); PROTEIN - SERUM 7.7 g/dL (6.4-8.2); SODIUM 138 mmol/L (136-145); UREA NITROGEN 16 mg/dL (7-18); eGFR NON AFRICAN AMERICAN 36 mL/min (90-120)
[2016-10-31 10:45] LABS: CKMB 1.7 U/L (0.0-3.6); CREATINE KINASE 131 UL (21-232); PRO BNP 7716 pg/mL (0-125); TROPONIN-I 0.041 ng/mL (0.000-0.060)
== END 2016-10-31 11:04 | disposition home or self-care (01) ==
LOC: D.ER 08:56
PROVIDERS: Emergency Medicine
DX: I50.9 Heart failure, unspecified (principal); I25.10 Atherosclerotic heart disease of native coronary artery without angina pectoris; I50.22 Chronic systolic (congestive) heart failure; R00.0 Tachycardia, unspecified

== ENCOUNTER 2016-11-03 01:26 | Emergency (ER) | payer MEDICARE, MEDICAID ==
[2016-09-30 12:21] VITALS: BMI 39.1
[2016-11-03 02:22] LABS: BASOPHILS 0.5 % (0.0-2.0); HEMATOCRIT 38.7 % (42.0-54.0); HEMOGLOBIN 12.1 g/dL (13.5-17.5); IMMATURE GRANULOCYTES 0.6 % (0-5); LYMPHOCYTES 29.1 % (15-50); MCH 24.8 pg (26.0-34.0); MCHC 31.3 g/dL (31.0-37.0); MCV 79.5 fL (80.0-100.0); MEAN PLATELET VOLUME 9.7 fL (7.4-10.4); MONOCYTES 11.7 % (2-11); NEUTROPHILS 55.1 % (40-80); PLATELET COUNT 380 10x3/uL (130-400); RBC 4.87 10x6/uL (4.20-6.10); RDW 17.4 % (11.5-14.5); WBC 6.3 10x3/uL (4.8-10.8)
[2016-11-03 02:26] LABS: INR 2.26 (0.85-1.17)
[2016-11-03 02:31] LABS: ALBUMIN 2.8 g/dL (3.4-5.0); ALKALINE PHOSPHATASE 129 U/L (46-116); ALT (SGPT) 32 U/L (10-68); BILIRUBIN - TOTAL 0.25 mg/dL (0.2-1.3); CALC OSMOLALITY 284 mosm/kg (275-300); CALCIUM 8.5 mg/dL (8.5-10.1); CARBON DIOXIDE 26.7 mmol/L (21.0-32.0); CHLORIDE - SERUM 100 mmol/L (98-107); CREATININE - SERUM 2.7 mg/dL (0.6-1.3); POTASSIUM - SERUM 3.9 mmol/L (3.5-5.1); PROTEIN - SERUM 7.9 g/dL (6.4-8.2); SODIUM 136 mmol/L (136-145); UREA NITROGEN 23 mg/dL (7-18); eGFR NON AFRICAN AMERICAN 26 mL/min (90-120)
[2016-11-03 02:42] LABS: GLUCOSE 266 mg/dL (74-106)
[2016-11-03 02:43] LABS: CHOL - HDL RATIO 4.7 ratio (2.3-4.9); CKMB 0.9 U/L (0.0-3.6); CREATINE KINASE 86 UL (21-232); HDL CHOLESTEROL 54 mg/dL (32-96); LDL CHOLESTEROL 151 mg/dL (0-100); LDL-HDL RATIO 2.8 ratio (1.5-3.5); PRO BNP 4118 pg/mL (0-125); TRIGLYCERIDE 250 mg/dL (30-200)
[2016-11-03 02:44] LABS: CHOLESTEROL, TOTAL 255 mg/dL (0-200); TROPONIN-I < 0.017 ng/mL (0.000-0.060)
== END 2016-11-03 04:32 | disposition other institution (70) ==
LOC: D.ER 01:26
PROVIDERS: Family Medicine
DX: K55.069 Acute infarction of intestine, part and extent unspecified (principal); I50.9 Heart failure, unspecified; I25.10 Atherosclerotic heart disease of native coronary artery without angina pectoris; N18.9 Chronic kidney disease, unspecified; R00.0 Tachycardia, unspecified; I44.7 Left bundle-branch block, unspecified

== ENCOUNTER 2016-11-07 08:16 | Emergency (ER) | payer MEDICARE, MEDICAID ==
[2016-09-30 12:21] VITALS: BMI 39.1
== END 2016-11-07 09:34 | disposition home or self-care (01) ==
LOC: D.ER 08:16
DX: G89.18 Other acute postprocedural pain (principal); I25.10 Atherosclerotic heart disease of native coronary artery without angina pectoris; I50.9 Heart failure, unspecified; N18.9 Chronic kidney disease, unspecified; F14.10 Cocaine abuse, uncomplicated; F17.200 Nicotine dependence, unspecified, uncomplicated

== ENCOUNTER 2016-11-14 10:17 | Emergency (ER) | payer MEDICARE, MEDICAID ==
[2016-09-30 12:21] VITALS: BMI 39.1
== END 2016-11-14 10:45 | disposition home or self-care (01) ==
LOC: D.ER 10:17
DX: S31.119D Laceration without foreign body of abdominal wall, unspecified quadrant without penetration into peritoneal cavity, subsequent encounter (principal); X58.XXXD Exposure to other specified factors, subsequent encounter; Y92.89 Other specified places as the place of occurrence of the external cause; Z48.02 Encounter for removal of sutures; I50.9 Heart failure, unspecified; I25.10 Atherosclerotic heart disease of native coronary artery without angina pectoris; N18.9 Chronic kidney disease, unspecified

== ENCOUNTER 2016-11-16 04:11 | Emergency (ER) | payer MEDICARE, MEDICAID ==
[2016-09-30 12:21] VITALS: BMI 39.1
[2016-11-16 04:46] LABS: BASOPHILS 0.8 % (0.0-2.0); HEMATOCRIT 32.5 % (42.0-54.0); IMMATURE GRANULOCYTES 0.8 % (0-5); LYMPHOCYTES 20.4 % (15-50); MCH 24.8 pg (26.0-34.0); MCHC 30.8 g/dL (31.0-37.0); MCV 80.6 fL (80.0-100.0); MONOCYTES 6.7 % (2-11); NEUTROPHILS 62.3 % (40-80); RBC 4.03 10x6/uL (4.20-6.10); RDW 17.7 % (11.5-14.5); WBC 10.7 10x3/uL (4.8-10.8)
[2016-11-16 04:47] LABS: PLATELET COUNT 458 10x3/uL (130-400)
[2016-11-16 05:05] LABS: INR 5.56 (0.85-1.17); PROTIME 51.4 SECONDS (11.6-15.0)
== END 2016-11-16 06:31 | disposition home or self-care (01) ==
LOC: D.ER 04:11
PROVIDERS: Emergency Medicine
DX: R04.0 Epistaxis (principal); T45.515A Adverse effect of anticoagulants, initial encounter; Y92.89 Other specified places as the place of occurrence of the external cause; I25.10 Atherosclerotic heart disease of native coronary artery without angina pectoris; I50.9 Heart failure, unspecified; N18.9 Chronic kidney disease, unspecified; F17.200 Nicotine dependence, unspecified, uncomplicated

== ENCOUNTER 2016-11-17 07:45 | Emergency (ER) | payer MEDICARE, MEDICAID ==
[2016-09-30 12:21] VITALS: BMI 39.1
== END 2016-11-17 10:08 | disposition home or self-care (01) ==
LOC: D.ER 07:45
DX: R04.0 Epistaxis (principal); F14.10 Cocaine abuse, uncomplicated

== ENCOUNTER 2016-11-20 09:29 | Emergency (ER) | payer MEDICARE, MEDICAID ==
[2016-09-30 12:21] VITALS: BMI 39.1
== END 2016-11-20 13:33 | disposition home or self-care (01) ==
LOC: D.ER 09:29
DX: G89.18 Other acute postprocedural pain (principal); K59.00 Constipation, unspecified; I25.10 Atherosclerotic heart disease of native coronary artery without angina pectoris; N18.9 Chronic kidney disease, unspecified

== ENCOUNTER 2016-11-28 01:48 | Emergency (ER) | payer MEDICARE, MEDICAID ==
[2016-09-30 12:21] VITALS: BMI 39.1
[2016-11-28 02:31] LABS: BASOPHILS 0.5 % (0.0-2.0); EOSINOPHILS 10.4 % (0-7); HEMATOCRIT 29.6 % (42.0-54.0); HEMOGLOBIN 8.7 g/dL (13.5-17.5); IMMATURE GRANULOCYTES 0.2 % (0-5); LYMPHOCYTES 30.5 % (15-50); MCH 24.4 pg (26.0-34.0); MCHC 29.4 g/dL (31.0-37.0); MCV 83.1 fL (80.0-100.0); MEAN PLATELET VOLUME 10.5 fL (7.4-10.4); NEUTROPHILS 50.4 % (40-80); RBC 3.56 10x6/uL (4.20-6.10); RDW 19.8 % (11.5-14.5); WBC 5.8 10x3/uL (4.8-10.8)
[2016-11-28 02:32] LABS: PLATELET COUNT 260 10x3/uL (130-400)
[2016-11-28 02:50] LABS: ALBUMIN 3.1 g/dL (3.4-5.0); ALKALINE PHOSPHATASE 150 U/L (46-116); ALT (SGPT) 32 U/L (10-68); BILIRUBIN - TOTAL 0.37 mg/dL (0.2-1.3); CALC OSMOLALITY 298 mosm/kg (275-300); CALCIUM 8.7 mg/dL (8.5-10.1); CARBON DIOXIDE 25.8 mmol/L (21.0-32.0); CHLORIDE - SERUM 108 mmol/L (98-107); GLUCOSE 241 mg/dL (74-106); POTASSIUM - SERUM 4.2 mmol/L (3.5-5.1); SODIUM 144 mmol/L (136-145); UREA NITROGEN 23 mg/dL (7-18); eGFR NON AFRICAN AMERICAN 36 mL/min (90-120)
[2016-11-28 03:01] LABS: AMYLASE - SERUM 64 U/L (25-115); CKMB 0.9 U/L (0.0-3.6); CREATINE KINASE 52 UL (21-232); LIPASE 435 U/L (73-393); PRO BNP 10644 pg/mL (0-125); TROPONIN-I 0.056 ng/mL (0.000-0.060)
== END 2016-11-28 04:40 | disposition home or self-care (01) ==
LOC: D.ER 01:48
PROVIDERS: Family Medicine
DX: I50.9 Heart failure, unspecified (principal); R07.9 Chest pain, unspecified; N18.9 Chronic kidney disease, unspecified

== ENCOUNTER 2016-11-29 11:21 | Emergency (ER) | payer MEDICARE, MEDICAID ==
[2016-09-30 12:21] VITALS: BMI 39.1
== END 2016-11-29 13:55 | disposition home or self-care (01) ==
LOC: D.ER 11:21
DX: K56.41 Fecal impaction (principal); G89.4 Chronic pain syndrome; I10 Essential (primary) hypertension

== ENCOUNTER 2016-11-30 05:32 | Emergency (ER) | payer MEDICARE, MEDICAID ==
[2016-09-30 12:21] VITALS: BMI 39.1
== END 2016-11-30 06:10 | disposition home or self-care (01) ==
LOC: D.ER 05:32
DX: R60.9 Edema, unspecified (principal); K59.00 Constipation, unspecified; G89.4 Chronic pain syndrome; I10 Essential (primary) hypertension

== ENCOUNTER 2016-12-06 07:10 | Emergency (ER) | payer MEDICARE, MEDICAID ==
[2016-09-30 12:21] VITALS: BMI 39.1
[2016-12-06 07:50] LABS: BASOPHILS 0.3 % (0.0-2.0); HEMATOCRIT 29.9 % (42.0-54.0); HEMOGLOBIN 8.7 g/dL (13.5-17.5); IMMATURE GRANULOCYTES 0.2 % (0-5); LYMPHOCYTES 29.4 % (15-50); MCH 23.8 pg (26.0-34.0); MCHC 29.1 g/dL (31.0-37.0); MCV 81.9 fL (80.0-100.0); MEAN PLATELET VOLUME 10.6 fL (7.4-10.4); MONOCYTES 9.9 % (2-11); NEUTROPHILS 54.2 % (40-80); PLATELET COUNT 238 10x3/uL (130-400); RBC 3.65 10x6/uL (4.20-6.10); RDW 18.8 % (11.5-14.5); WBC 6.5 10x3/uL (4.8-10.8)
[2016-12-06 08:17] LABS: ALBUMIN 3.2 g/dL (3.4-5.0); ALKALINE PHOSPHATASE 150 U/L (46-116); ALT (SGPT) 25 U/L (10-68); BILIRUBIN - TOTAL 0.46 mg/dL (0.2-1.3); CALC OSMOLALITY 285 mosm/kg (275-300); CALCIUM 8.5 mg/dL (8.5-10.1); CARBON DIOXIDE 28.1 mmol/L (21.0-32.0); CHLORIDE - SERUM 106 mmol/L (98-107); CREATININE - SERUM 1.9 mg/dL (0.6-1.3); GLUCOSE 183 mg/dL (74-106); POTASSIUM - SERUM 4.4 mmol/L (3.5-5.1); PROTEIN - SERUM 6.7 g/dL (6.4-8.2); SODIUM 140 mmol/L (136-145); UREA NITROGEN 19 mg/dL (7-18); eGFR NON AFRICAN AMERICAN 38 mL/min (90-120)
[2016-12-06 08:28] LABS: CHOL - HDL RATIO 3.4 ratio (2.3-4.9); CHOLESTEROL, TOTAL 168 mg/dL (0-200); CKMB 0.8 U/L (0.0-3.6); CREATINE KINASE 53 UL (21-232); HDL CHOLESTEROL 50 mg/dL (32-96); LDL CHOLESTEROL 87 mg/dL (0-100); LDL-HDL RATIO 1.7 ratio (1.5-3.5); PRO BNP 8782 pg/mL (0-125); TRIGLYCERIDE 158 mg/dL (30-200); TROPONIN-I 0.028 ng/mL (0.000-0.060)
[2016-12-06 08:37] LABS: UDS - AMPHET NEGATIVE QUAL (NEGATIVE); UDS - BARB NEGATIVE QUAL (NEGATIVE); UDS - BENZO POSITIVE QUAL (NEGATIVE); UDS - COCAINE NEGATIVE QUAL (NEGATIVE); UDS - METH NEGATIVE QUAL (NEGATIVE); UDS - OPIATE NEGATIVE QUAL (NEGATIVE); UDS - PCP NEGATIVE QUAL (NEGATIVE); UDS - THC POSITIVE QUAL (NEGATIVE)
== END 2016-12-06 12:32 | disposition home or self-care (01) ==
LOC: D.ER 07:10
PROVIDERS: Emergency Medicine
DX: R07.9 Chest pain, unspecified (principal); I50.9 Heart failure, unspecified; I10 Essential (primary) hypertension; E11.9 Type 2 diabetes mellitus without complications; F17.200 Nicotine dependence, unspecified, uncomplicated; I44.7 Left bundle-branch block, unspecified

== ENCOUNTER 2016-12-09 10:40 | Emergency (ER) | payer MEDICARE, MEDICAID ==
[2016-09-30 12:21] VITALS: BMI 39.1
== END 2016-12-09 14:49 | disposition home or self-care (01) ==
LOC: D.ER 10:40
DX: R10.9 Unspecified abdominal pain (principal); I50.9 Heart failure, unspecified; E11.9 Type 2 diabetes mellitus without complications; I10 Essential (primary) hypertension

== ENCOUNTER 2016-12-22 04:31 | Emergency (ER) | payer MEDICARE, MEDICAID ==
[2016-09-30 12:21] VITALS: BMI 39.1
[2016-12-22 06:29] LABS: ALBUMIN 3.2 g/dL (3.4-5.0); ANION GAP 14.8 mmol/L (8-16); BILIRUBIN - TOTAL 0.8 mg/dL (0.2-1.3); CALCIUM 8.9 mg/dL (8.5-10.1); CARBON DIOXIDE 24.6 mmol/L (21.0-32.0); CREATININE - SERUM 2.1 mg/dL (0.6-1.3); POTASSIUM - SERUM 4.4 mmol/L (3.5-5.1); PROTEIN - SERUM 6.8 g/dL (6.4-8.2)
[2016-12-22 06:38] LABS: TROPONIN-I 0.046 ng/mL (0.000-0.060)
[2016-12-22 07:04] LABS: BASOPHILS 0.5 % (0.0-2.0); EOSINOPHILS 2.3 % (0-7); HEMATOCRIT 30.2 % (42.0-54.0); HEMOGLOBIN 8.6 g/dL (13.5-17.5); IMMATURE GRANULOCYTES 0.2 % (0-5); LYMPHOCYTES 25.8 % (15-50); MCHC 28.5 g/dL (31.0-37.0); MCV 80.7 fL (80.0-100.0); MEAN PLATELET VOLUME 10.7 fL (7.4-10.4); MONOCYTES 11.5 % (2-11); NEUTROPHILS 59.7 % (40-80); PLATELET COUNT 235 10x3/uL (130-400); RBC 3.74 10x6/uL (4.20-6.10); RDW 18.8 % (11.5-14.5); WBC 6.6 10x3/uL (4.8-10.8)
== END 2016-12-22 06:53 | disposition home or self-care (01) ==
LOC: D.ER 04:31
PROVIDERS: Family Medicine
DX: I50.9 Heart failure, unspecified (principal); I10 Essential (primary) hypertension; E11.9 Type 2 diabetes mellitus without complications

== ENCOUNTER 2016-12-27 10:41 | Emergency (ER) | payer MEDICARE, MEDICAID ==
[2016-09-30 12:21] VITALS: BMI 39.1
[2016-12-27 13:02] LABS: APPEARANCE HAZY (CLEAR); BACTERIA MANY /hpf (NONE SEEN); BILIRUBIN NEGATIVE (NEGATIVE); COLOR YELLOW (YELLOW); EPITHELIAL CELLS 0-5 /hpf (0-5); GLUCOSE NEGATIVE (NEGATIVE); KETONE NEGATIVE (NEGATIVE); LEUKOCYTE ESTERASE TRACE (NEGATIVE); MUCUS <1+ /lpf (NONE SEEN); NITRITE NEGATIVE (NEGATIVE); PROTEIN NEGATIVE (NEGATIVE); WHITE CELLS - URINE 0-5 /hpf (0-5)
== END 2016-12-27 12:52 | disposition home or self-care (01) ==
LOC: D.ER 10:41
PROVIDERS: Emergency Medicine
DX: R10.9 Unspecified abdominal pain (principal); F17.200 Nicotine dependence, unspecified, uncomplicated

== ENCOUNTER 2017-01-01 10:06 | Emergency (ER) | payer MEDICARE, MEDICAID ==
[2016-09-30 12:21] VITALS: BMI 39.1
== END 2017-01-01 11:00 | disposition home or self-care (01) ==
LOC: D.ER 10:06
DX: R60.0 Localized edema (principal); Z95.2 Presence of prosthetic heart valve; Z79.01 Long term (current) use of anticoagulants; I50.9 Heart failure, unspecified; E11.9 Type 2 diabetes mellitus without complications; I10 Essential (primary) hypertension; F17.200 Nicotine dependence, unspecified, uncomplicated

== ENCOUNTER 2017-01-05 00:50 | Emergency (ER) | payer MEDICARE, MEDICAID ==
[2016-09-30 12:21] VITALS: BMI 39.1
== END 2017-01-05 01:16 | disposition home or self-care (01) ==
LOC: D.ER 00:50
DX: R60.0 Localized edema (principal)

== ENCOUNTER 2017-01-11 07:34 | Emergency (ER) | payer MEDICARE, MEDICAID ==
[2016-09-30 12:21] VITALS: BMI 39.1
[2017-01-11 08:58] LABS: HEMATOCRIT 30.5 % (42.0-54.0); HEMOGLOBIN 8.9 g/dL (13.5-17.5); LYMPHOCYTES 32.7 % (15-50); MCH 21.6 pg (26.0-34.0); MCHC 29.2 g/dL (31.0-37.0); MEAN PLATELET VOLUME 10.5 fL (7.4-10.4); NEUTROPHILS 54.8 % (40-80); PLATELET COUNT 204 10x3/uL (130-400); RBC 4.12 10x6/uL (4.20-6.10); RDW 18.8 % (11.5-14.5); WBC 5.6 10x3/uL (4.8-10.8)
[2017-01-11 09:02] LABS: INR 1.18 (0.85-1.17); PROTIME 14.9 SECONDS (11.6-15.0)
[2017-01-11 09:11] LABS: ALBUMIN 3.3 g/dL (3.4-5.0); BILIRUBIN - TOTAL 0.62 mg/dL (0.2-1.3); CARBON DIOXIDE 27.4 mmol/L (21.0-32.0); POTASSIUM - SERUM 4.4 mmol/L (3.5-5.1); PROTEIN - SERUM 7.1 g/dL (6.4-8.2)
[2017-01-11 09:38] LABS: UDS - AMPHET NEGATIVE QUAL (NEGATIVE); UDS - BARB NEGATIVE QUAL (NEGATIVE); UDS - BENZO NEGATIVE QUAL (NEGATIVE); UDS - COCAINE NEGATIVE QUAL (NEGATIVE); UDS - METH NEGATIVE QUAL (NEGATIVE); UDS - OPIATE NEGATIVE QUAL (NEGATIVE); UDS - PCP NEGATIVE QUAL (NEGATIVE); UDS - THC POSITIVE QUAL (NEGATIVE)
[2017-01-11 09:52] LABS: COLOR YELLOW (YELLOW)
[2017-01-11 09:53] LABS: APPEARANCE SLT CLOUDY (CLEAR); BILIRUBIN NEGATIVE (NEGATIVE); EPITHELIAL CELLS 0-5 /hpf (0-5); GLUCOSE NEGATIVE (NEGATIVE); KETONE NEGATIVE (NEGATIVE); LEUKOCYTE ESTERASE 1+ (NEGATIVE); NITRITE NEGATIVE (NEGATIVE); PROTEIN TRACE mg/dL (NEGATIVE); RED CELLS - URINE 0-5 /hpf (0-5); SPECIFIC GRAVITY 1.015 (1.005-1.020)
[2017-01-11 09:54] LABS: BACTERIA MODERATE /hpf (NONE SEEN)
== END 2017-01-11 10:12 | disposition home or self-care (01) ==
LOC: D.ER 07:34
PROVIDERS: Emergency Medicine
DX: R60.0 Localized edema (principal); Z91.19 Patient's noncompliance with other medical treatment and regimen; I11.0 Hypertensive heart disease with heart failure; I50.9 Heart failure, unspecified; N28.9 Disorder of kidney and ureter, unspecified; Z72.0 Tobacco use

== ENCOUNTER 2017-01-18 21:13 | Emergency (ER) | payer MEDICARE, MEDICAID ==
[2016-09-30 12:21] VITALS: BMI 39.1
== END 2017-01-19 01:23 | disposition home or self-care (01) ==
LOC: D.ER 21:13
DX: S50.311A Abrasion of right elbow, initial encounter (principal); X58.XXXA Exposure to other specified factors, initial encounter; Y93.89 Activity, other specified; Y92.89 Other specified places as the place of occurrence of the external cause; K02.9 Dental caries, unspecified; I50.9 Heart failure, unspecified; I10 Essential (primary) hypertension; F17.200 Nicotine dependence, unspecified, uncomplicated